=== PATIENT | male | born 1940 | race Caucasian/White ===

== ENCOUNTER 2020-05-27 10:50 | Emergency (ER) | payer OTHER ==
--- OUTSIDE RECORDS SUMMARY | 2020-05-27 10:52 | XMS REPORT | Continuity of Care Document ---
:1940 Author Organization [facility] t Address [address] [place] [address] Dr. [address]. [address] [place] [address] Care Team Providers Name Role Phone DARRELL NESBITT Primary Care Physician Unavailable SYSTEM, NOT IN Attending Clinician Unavailable Eda Prince MA Attending Clinician Unavailable BURR Attending Clinician Unavailable Burr PA Attending Clinician Navid KASPER-BUSINESS DEVELOPMENT, M Attending Clinician Unavailable DARRELL NESBITT Attending Clinician Unavailable Darrell Nesbitt MD Attending Clinician Cathy ELAM Attending Clinician Unavailable Aditya EDITOR IN CHIEF, M Attending Clinician Mirna MERRITT Attending Clinician Unavailable Oly DMD, S Attending Clinician Karli DDS Attending Clinician Justice RN, W Attending Clinician Unavailable Leda Acosta MA Attending Clinician Bret PRITCHETT G Attending Clinician Teir PRITCHETT, L Attending Clinician Payers Payer Name Policy Type Policy Number Effective Date Expiration Date Mirna angelo AETNA MEDICAREAETNA [id number] 2016 MD Beckie malagon MEDICARE 00:00:00 [id number] -PresentMedicare Problems Condition Condition Condition Status Onset Resolution Last Treating Co mments Source Name Details Category Date Date Treatment Clinician Date 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 Social History Social Habit Start Date Stop Date Quantity Comments Source Sex Assigned At M MD Sethi on Exposure to Not sure MD Castellanos SARS-CoV-2 (event) Tobacco use and 2020-05-21 2020-05-21 Former user MD Attila avila exposure 00:00:00 00:00:00 Alcohol intake 2020-05-21 2020-05-21 Current drinker MD Beckie malagon 00:00:00 00:00:00 of alcohol (finding) Smoking Status Start Date Stop Date Source Former smoker 2020-05-21 00:00:00 2020-05-21 00:00:00 MD Attila avila Medications Ordered Filled Start Stop Current Ordering Indication Dosage Frequency Signature Comments Components Source Medication Medication Date Date Medication? Clinician (SIG) Name Name C,E,zinc,co Yes 1{tbl} Take 1 pper 9- tablet by Byron 11/fcwyr4a/ 16:39: mouth n lut 39 daily. (OCUVITE ADULT 50 PLUS ORAL) timolol Yes 1[drp] Administer (TIMOPTIC-X 5-05 1 drop to And erso R) 0.5 % 00:00: both eyes n ophthalmic 00 daily. gel-forming latanoprost Yes 1[drp] Administer (XALATAN) 5-05 1 drop to Attila so 0.005% 00:00: both eyes n ophthalmic 00 at solution bedtime. Vital Signs Vital Name Observation Time Observation Value Comments Source WEIGHT 2020-05-22 13:12:11 123.5 kg WEIGHT 2020-05-22 13:12:11 123.5 kg HEIGHT 2020-05-21 11:15:00 169 cm WEIGHT 2020-05-21 11:15:00 122.2 kg HEIGHT 2020-05-21 11:15:00 169 cm WEIGHT 2020-05-21 11:15:00 122.2 kg Systolic blood pressure 2020-05-22 18:12:11 163 mm[Hg] MD Castellanos Diastolic blood pressure 2020-05-22 18:12:11 75 mm[Hg] MD Castellanos Heart rate 2020-05-22 18:12:11 67 /min MD Attila avila Body temperature 2020-05-22 18:12:11 36.28 Philomena MD Etienne fabian Respiratory rate 2020-05-22 18:12:11 18 /min MD Etienne fabian Body weight 2020-05-22 18:12:11 123.5 kg MD Attila avila BMI 2020-05-22 18:12:11 43.24 kg/m2 MD Attila avila Oxygen saturation in 2020-05-22 18:12:11 98 /min MD Castellanos Arterial blood by Pulse oximetry Body height 2020-05-21 16:15:00 169 cm MD Attila avila Procedures Procedure Date / Time Performed Performing Clinician [facility] e BLOOD UREA NITROGEN 2020-05-22 19:50:00 Loi Elam MD rson COMPLETE BLOOD COUNT W/ 2020-05-22 19:50:00 Loi Elam MD DIFFERENTIAL SERUM CREATININE 2020-05-22 19:50:00 Loi Elam MD ELECTROLYTE PANEL 2020-05-22 19:50:00 Loi Elam MD on GLUCOSE, RANDOM 2020-05-22 19:50:00 Loi Elam MD TYPE AND SCREEN 2020-05-22 19:50:00 Loi Elam MD HEMOGLOBIN A1C 2020-05-22 19:50:00 Loi Elam MD THYROID STIMULATING HORMONE 2020-05-22 19:50:00 Loi Elam MD FREE THYROXINE 2020-05-22 19:50:00 Loi Elam MD Results CBC 2020-05-22 19:50:00 Loi Elam MD MANUAL DIFFERENTIAL 2020-05-22 19:50:00 Loi Elam MD rson SERUM CREATININE 2020-05-22 19:50:00 Loi Elam MD .GLOMERULAR FILTRATION RATE 2020-05-22 19:50:00 Loi Elam MD ABORH 2020-05-22 19:50:00 Loi Elam MD ANTIBODY SCREEN 2020-05-22 19:50:00 Loi Elam MD CLOT EXPIRATION DATE 2020-05-22 19:50:00 Loi Elam MD And erson TMP INTERPRETATION ANTIBODY 2020-05-22 19:50:00 Loi Elam MD SCREEN NEGATIVE TMP INTERPRETATION EXCEPTION 2020-05-22 19:50:00 Loi Elam MD PREOP EXPIRATION CONFIRM ABORH TYPE 2020-05-22 19:49:00 Loi Elam MD US HEAD NECK SOFT TISSUE 2020-05-22 17:38:30 Andrzej Burr MD EKG, 12-LEAD (SCHEDULED) 2020-05-22 00:00:00 Loi Elam MD ORTHOPANTOGRAM 2020-05-21 15:08:55 Clair Calvillo MD HC COVID19 AUTOMATED PCR 2020-05-19 20:26:00 Aidee Rendon MD PATHOLOGY OUTSIDE 2020-04-26 00:00:00 Madelaine Williamson MD INTERPRETATION Plan of Care Planned Activity Planned Date Details Comments Source Future Appointment 2020-06-03 07:00:00 Carie Nesbitt MD, [address] [place] [address] Future Appointment 2020-06-03 07:00:00 Carie Nesbitt MD, [address] [place] [address] Encounters Start End Encounter Admission Attending Care Care Encounter Source Date/Time Date/Time Type Type Clinicians Facility Department ID 2020-05-02 Outpatient SYSTEM, MDA MDA [id number] 15:28:43 PROVIDER Navdeep garcia 2020-05-22 2020-05-22 Outpatient GIANCARLO BURR MDA MDA [id number] 14:54:11 23:59:00 ANDRZEJ garcia 2020-05-22 2020-05-22 Outpatient CARIE FARAH MDA MDA [id number] 13:02:38 16:25:59 Navdeep garcia 2020-05-22 2020-05-22 Outpatient GIANCARLO ELAM MDA MDA [id number] 14:42:21 14:53:00 LOI garcia 2020-05-22 2020-05-22 Outpatient GIANCARLO ELAM MDA MDA [id number] 11:30:00 14:41:00 LOI garcia 2020-05-22 2020-05-22 Outpatient GIANCARLO BURR MDA MDA [id number] 11:18:34 11:18:34 ANDRZEJ garcia 2020-05-21 2020-05-21 Outpatient CARIE FARAH MDA MDA [id number] 11:30:00 23:59:00 Navdeep garcia 2020-05-21 2020-05-21 Outpatient GIANCARLO MERRITT JANNA MDA [id number] 10:08:55 11:29:00 GIUSEPPE garcia 2020-05-21 2020-05-21 Outpatient GIANCARLO MERRITT MDA MDA [id number] 10:00:00 10:07:00 GIUSEPPE garcia 2020-05-21 2020-05-21 Outpatient GIANCARLO SALDIVAR MDA [id number] 09:54:30 09:54:30 Navdeep garcia 2020-05-19 2020-05-19 Outpatient CARIE FARAH MDA MDA [id number] 15:12:45 15:12:45 Navdeep garcia Results Test Description Test Time Test Comments Results Result Comments Source TMP Interpretation Exception PreOp Expiration 2020-05-23 18: 21:23 Test Item Value Reference Range Interpretation Comme nts TMP Patient's pre-op MARION Exception Type and Screen Surekha WOODARD ed by: MARION WOODARD,Dictated Date/Time: (test code shows no evidence 05.23.2020 13:21 PM CDT Transcribed Date/Time: 05.23.2020 = 7543) of RBC 13:21 PM CDTEle ctronically Signed By: MARION WOODARD on alloantibody(ies). 0 13:21 PM CLINICAL INFORMATION PROVIDED BY THE ANESTHESIOLOGISTS AND PATIENT WOULD ALLOW FOR THIS SAMPLE TO BE USED UP TO 30 DAYS FOR TYPE AND SCREEN FOR SURGERY ONLY. MD Saucedo Interpretation Antibody Screen [id number] 18:21:22 Test Item Value Reference Range Interpretation Comments TMP Auto Neg At the present ABSC Interp time, patient (test code = plasma shows no ____MARION 7535) evidence of RBC Surekha WOODARD ed by: alloantibodies. MARION BOSCH,Dictated Date/Time: 13:21 PM CDT Transcribed Gerardo e/Time: 05.23.2020 13:2 1 PM CDTElectronical ly Signed By: MARION CHRISTOPHER on 05.23.2020 13:2 1 PM MD [id number] 02:24:33 Test Item Value Reference Range Interpretation Comments TSH (test code = 7578) 2.42 0.27- 4.20 mcunit/mL MD CastellanosAntibody [id number] 22:33:36 Test Item Value Reference Range Interpretation Comments ABSC. (test code = 890-4) Negative ABSC MD [id number] 22:33:35 Test Item Value Reference Range Interpretation Comments ABORh. (test code = 882-1) B POS MD CastellanosClot Expiration [id number] 22:33:34 Test Item Value Reference Range Interpretation Comments T & S Expiration (test code = 05/25/2020 5318) MD CastellanosConfirm [id number] 22:31:28 Test Item Value Reference Range Interpretation Comments ABORh Confirm. (test code = 882-1) B POS MD CastellanosFree [id number] 21:12:33 Test Item Value Reference Range Interpretation Comments T4 Free (test code = 7502) 1.30 ng/dL 0.93-1.7 MD CastellanosGlomerular Filtration [id number] 21:12:32 Test Item Value Reference Range Interpretation Comments eGFR-AA (test 79 >=60 mL/min/1.73 sq. Normal eGFR: >= 60 code = 8062) m mL/min/1.73 m2N ote: The eGFR is calcula rbisa using the CKD-EPI equ ation. The eGFR declines w ith age. eGFR <60 mL/min /1.73 m2 is considered as " decreased". This equation s hould only be used for pat ients 18 and older. Acco rding to the National Ki dney Foundation's Ki dney Disease Outcome Quality Initiative (KDO QI) classification and 2012 Kidney Disease Improving Global Outcomes (KDIGO) Clinical Practi ce Guideline, the stage of CKD should be c ategorized based on estima brisa GFR. Stage Descripti on GFR mL/min/1.73 m21 Normal or high GFR >=902 Mildly de creased GFR 60-893a Mildly to moder ately decreased GFR 45-593b Moderately to s everely decreased GFR 30-444 Severely decrea sed GFR 15-295 Kidney failure <15 eGFR-MARISSA (test 69 >=60 mL/min/1.73 sq. Nataly l eGFR: >= 60 code = 8063) m mL/min/1.73 m2N ote: The eGFR is calcula brisa using the CKD-EPI equ ation. The eGFR declines w ith age. eGFR <60 mL/min /1.73 m2 is considered as " decreased". This equation s hould only be used for pat ients 18 and older. Acco rding to the National Ki dney Foundation's dney Disease Outcome Quality Initiative (KDO QI) classification and 2012 Kidney Disease Improving Global Outcomes (KDIGO) Clinical Practi ce Guideline, the stage of CKD should be c ategorized based on estima brisa GFR. Stage Descripti on GFR mL/min/1.73 m21 Normal or high GFR >=902 Mildly de creased GFR 60-893a Mildly to moder ately decreased GFR 45-593b Moderately to s everely decreased GFR 30-444 Severely decrea sed GFR 15-295 Kidney failure <15 MD Castellanos.Serum [id number] 21:12:31 Test Item Value Reference Range Interpretation Comments Creatinine (test code = 5399) 1.03 mg/dL 0.67-1.17 MD CastellanosGlucose, [id number] 21:12:30 Test Item Value Reference Range Interpretation Comments Glucose Random (test 86 mg/dL 70-199 Effecti ve 04/15/16, the code = 9360) glucose referen ce intervals have been updated based o n [place] [employer] [place] (Standards of M edical Care in Diabete s 2016. Diabetes Care 2 016; 39: S13-S22).Fastin g blood glucose:Normal: 70 99 mg/dLImpaire d fasting glucose (increa sed risk for diabetes or pre-diabetes): 100 125 mg/dLDiabet es mellitus: >/=1 26 mg/dL Random blood glucose:Normal: 70 199 mg/dLNote: Random glucose >100 mg /dL is associated with increased risk for diabetes MD CastellanosElectrolyte [id number] 21:12:29 Test Item Value Reference Range Interpretation Comments Sodium Lvl (test code = 7355) 143 136- 145 mEq/L Potassium Lvl (test code = 6854) 4.7 3.5- 5.1 mEq/L Chloride (test code = 5279) 105 98- 107 mEq/L CO2 (test code = 5227) 28 22- 29 mEq/L Anion Gap (test code = 9325) 10 4- 14 mEq/L MD [id number] 21:12:28 Test Item Value Reference Range Interpretation Comments BUN (test code = 5055) 12 mg/dL 6-23 MD CastellanosHemoglobin [id number] 20:23:55 Test Item Value Reference Range Interpretation Comments A1C (test code = 5.6 % 4.3-5.6 HbA1c value s >=6.5% are 4632) diagnostic of d iabetes mellitus.Diagno sis should be confirmed by repeat testing.Therape utic Action suggested: >8.0 % HbA1c; Goal oftherapy: <7.0% HbA1c MD Castell[id number] 20:14:58 Test Item Value Reference Range Interpretation Comments Neutrophil % (test code = 70.4 % 42-66 H 86036-9) Lymphocyte % (test code = 15.3 % 24-44 L 737-7) Monocyte % (test code = 10.6 % 2-7 H 744-3) Eosinophil % (test code = 2.7 % 1-4 713-8) Basophil % (test code = 0.7 % 0-1 707-0) IGRE % (test code = 0.3 % 0-0.4 IGRE % c ount 98454-2) includes Metamyelocytes, Myelocytes, and Promyelocytes. Neutrophil Abs (test code 4.91 K/uL 1.7-7.3 = 753-4) Lymphocyte Abs (test code 1.07 K/uL 1-4.8 = 732-8) Monocyte Abs (test code = 0.74 K/uL 0.08-0.7 H 743-5) Eosinophil Abs (test code 0.19 K/uL 0.04-0.4 = 712-0) Basophil Abs (test code = 0.05 K/uL 0-0.1 705-4) IG Abs (test code = 0.02 K/uL 0-0.04 89599-3) Lab Interpretation (test Abnormal code = 58852-2) MD Castellanos.[id number] 20:14:56 Test Item Value Reference Range Interpretation Comments WBC (test code = 7.0 K/uL 4-11 6690-2) RBC (test code = 789-8) 4.96 4.50- 6.00 M/uL Hgb (test code = 718-7) 15.7 14.0- 18.0 gm/dL Hct (test code = 45.3 % 40-54 4544-3) MPV (test code = 787-2) 9.6 fL 4-10.4 MCH (test code = 785-6) 31.7 pg 27-31 H MCHC (test code = 34.7 31.0- 36.0 gm/dL 786-4) RDW-SD (test code = 42.0 fL 35.1-46.3 71167-9) RDW-CV (test code = 12.6 % 12-15.5 788-0) Platelet count (test 149 K/uL 140-440 code = 777-3) INRBC (test code = 0.0 % <=0.0 The INRBC (instrument 5974) NRBC) value ref lects the enumeration of nucleated red b lood cells contained in a 200uL sampleof whole blood analyzed by the instrument. Thi s value maydiffer from the NRBC value reported in a m anual differential,wh ich is based on a 100 cell differential. Lab Interpretation Abnormal (test code = 27157-7) MD CastellanosUS HEAD NECK SOFT [id number] 19:18:32No lateral compartment adenopathy.Interface, Radiology Results In - 05/22/2020 2:20 PM CDTFULL RESUL T:Examination: US HEAD NECK SOFT TISSUE on 05/22/2020 12:38 PMClinical History: Cancer of border of tongueIndication: Other:, Oral tongue cancer initial evaluation of neckComparison: None.Technique: Real-time ultrasound examination of the neck soft tissues was performed.FINDINGS:Suprasternal and Superior Mediastinal: Clear.Right Lateral Neck: Clear.Left Lateral Neck: Clear.Submental to Cricoid: Clear.IMPRESSION:No lateral compartment adenopathy.MD Castellanos [id number] 15:08:55This procedure requires no interpretation from the radiologist.MD CastellanosCOVID-19 (SARS-CoV-2) PCR-Asymptomatic [id number] 06:26:17 Test Item Value Reference Range Interpretation Comments COVID19 (SARS Not Detected Not Detected This test is a CoV-2) Result qualitative (test code = reverse-transcr iptase 65069-6) polymerase yissel n reaction (RT-PC R) developed for t he [employer] syst em and intended for th e detection of SA RS CoV-2 RNA in human nasopharyngeal specimens from patients who meet COVID- 19 clinical and/or epidemiological criteria. This assay has been approv ed by the FDA for use only under Emergency Use Authorization ( EUA) in laboratories th at have been CLIA-certi fied to perform moderate-comple xity and high-complexity tests. The performance characteristics of this assay were veri fied by the [facility], CLIA Accreditat ion #: [id number] and CAP Accreditation # : [id number]. Result s must be interpreted within the context of all relevant clinic al and laboratory find ings and should not form the sole basis for a diagnosis or tr eatment decision. "Pres umptive Positive" resul ts are due to partial amplification o f SARS-CoV-2 targ ets and indicates low a lindsey of virus presen t in the specimen at or near the limit of detect ion. Regardless, ind ividuals with "Presumpti ve Positive" resul ts should be manag ed per institutional guidelines as individuals pos itive for SARS-CoV-2 virus, including use o f appropriate inf ection control protoco ls. Internal contro ls are included to ass ess for possible amplif ication inhibitors. If inhibition is d etected, testing is repe ated and if inhibition i s confirmed the s pecimen is resulted as "Invalid". When an "Invalid" resul t occur, it is recommend ed to wait 3 days bef ore submitting a ne w specimen for te sting if clinically jennie cated. COVID19 SARS EDITOR IN CHIEF Swab Source (test code = 49808) COVID19 SARS New Patient Indication (test code = 16066) MD CastellanosPathology Outside [id number] 16:30:00 Test Item Value Reference Range Interpretation Comments Materials Received (test l1zrbRUyJKJuxMTvPiXn code = 9973) FGZoEQErl3hzMKMlfRNb ZzEwMzNcZnRuYmpcdWMx NZWqDdFjz8wpd298eURx o5tnAPIfMlU4rPHpQWYs eNRkO844YQDuHDheu0of t6KzMIWcjMHrw5A6OSEP tknwfCc3kCgiY32rh5B4 TfvzI8wyHQKkHSHoZ7Co ZH5oMVUgAbg3YAB6CLO3 ZKWhYZWuS8SbKM8nINIw jGUtGUm2e9lcjQesACUv RBE7w8fkCRcbfaXuOJ9v px4xpYt8h6okutHlBLEl IHQbzFUQTQWzO0RkqZyr Cu1gjBt9nMylQpqaOOS2 Hty4GB8dsf92pbj7kZuc XENsxvyqFdR9SFrdJPCj pskvLMi8YNiuSJQukOvx MFxtYXJncjcyMFxtYXJn bMO8PDYysKMjW4FgJBYj IBknYMDzfxp8JgYbVf1v zAXbjKneHSkse5hhe7dj cGJfVpz4EAYoGwUyVswm AUvlp6Pry7kzVMWszb9h HNV7eFMpvGvhg0L4mZNu SWStuDRrctTiSVPhcg28 tMKppZSsmVHtfk9tfcWo sNMdsWBpGQD4rKIucgAo ZCZduKEnKPKjAQ4qnUIt KCIddI9bdvswTCPqUxJw wiavOIGmhMtiblCtSf3h rEysBRS6JDnbY0iaqC2c VaH0XSlvF1tbrJ2rMBb4 DDqrfYH7IEJokG1rCR8p mizqc0puOeYjPO7gofdu i8skJjHzNH9zmjw5b0sl MQW4XCbeXYMgSsH3izI8 NDBcaGVhZGVyeTcyMFxm l593CWI2TdYmNKByz9Jd P2YsxVtaG11jlXekD50k LIVtzTyytJ7nyXfmdS4v ZlCrYyCdUCn6um52LIk8 pxkdlNzcVSi6abVuPQLq TWD3BCOunXSgGHDpR0v4 vnRmIWZwNBC7WSEbhWYq SXQzJ5c8sdXsTLD3EEc1 cnBhZGRmdDNcdHJwYWRk YjBcdHJwYWRkZmIzXHRy pYLmfFZwvIGbtG7suKhp ZUNkfRVxuB1jQXI1MRGh cmgzMjBcdHJoZHJcbHRy cs87SBKvaoBgoEDsyLbc yYLbDBK7LIBmCCFkACTz SAP8SLYvDvGsucFyELfr bGJyZHJiXGJyZHJzXGJy VRM3RVFjCpAjfyLqFElj bGJyZHJsXGJyZHJzXGJy GCZ9VDJqLwNaysCxALdi bGJyZHJyXGJyZHJzXGJy YIC2KODnNlZgiaUnDGms bHBhZHQxMFxjbHBhZGZ0 C1vqfFHcHGKrMBfjwRUh UBRpB3qhcJRaWJddEUQr cGFkZmwzXGNscGFkYjBc W7spUMMjMbEdK4VvxOi8 MDAwXGNsdmVydGFsdFxj rKHaAWO7WKXrPRXkEHUv JOH5QFEuBeRoneWbZWsw bGJyZHJiXGJyZHJzXGJy GZZ9DFLlXzYwcdUqJAop bGJyZHJsXGJyZHJzXGJy SXB5KGYaZkZizeSuCNzm bGJyZHJyXGJyZHJzXGJy JDS1NJPwWwIhszSgKShg bHBhZHQxMFxjbHBhZGZ0 K7utrOOnNDFvKGfmcJOf PMMhP3rawRKqZJivIUUz cGFkZmwzXGNscGFkYjBc K7yqYNIsXuAcW3UzxFz4 NjAwXGNsdmVydGFsdFxj iDDqFQF7XBDjDQYoTUSt WZJ8BXPkKkJloeTzOIoq bGJyZHJiXGJyZHJzXGJy MOO7FBLmOpYjvbZqJSkg bGJyZHJsXGJyZHJzXGJy QIC6LSEiTzOvkaNoEOjz bGJyZHJyXGJyZHJzXGJy VET4NVVeIvPqltLqGDjj bHBhZHQxMFxjbHBhZGZ0 M8lzbJJcSXXcYFpvvQZl ATWzT1eigIBeNQzgMJSa cGFkZmwzXGNscGFkYjBc G6lfOAMzUeKdX5MeyUy3 KtRlBWMkesWlzU50Hlzy r1YuMVKyOFF3VIabCYts bFxwbGFpblxmMVxmczIw QMhkgqiwBYUiHXzfV2zc SkWmYXRsqRkvXPxph7Hi XGYxXGNmMlxmczIwXGIg TCMbODKhiU7mYnqsO6Up yE1zUZcdUnxuL6fsNGXi w7QmvN0aFUirzSEkioxb MVxmczIwXGxhbmcxMDMz FAefE7nyPeSkMWLgvAdd SWltx5EjRWIfRZDiJkag fpXxSFv9xmYwCVXhgZum pNMmIWzipeZucTeph9Iv paCfcBhkRTRbDWj1dfCb qppygOg8xEBzyVpyUFPr xVkbzA8wKaCcHwDnXRbp bGFpblxmMVxmczIwXGxh cqjsMFAjCMmrA4epJgOc UYHxtZiiFEtvk7RhFKJr RIYlUtzcndYhDIVaN67l bGVjdGVkXHBsYWluXGYx XGZzMjBcbGFuZzEwMzNc aGljaFxmMVxkYmNoXGYx BRkoL3jzXzStN5DvVQRy OuDnbGLvI0rsY3YqxYmb YXJkXGludGJsXHNzcGFy IPY0eCLgjsCjxURoqMSa EHSkLPnyYBU6tEYffcys bZTeoszrSKenifZ4OCLh YWluXGYxXGZzMjBcbGFu ZzEwMzNcaGljaFxmMVxk YsKvGCGxJOzyF1rkAyJb G4PrTIKdGqJzHbCRVFOy aXZlZFxwbGFpblxmMVxm czIwXGxhbmcxMDMzXGhp R2twSbCwDWSflUapVPoa m9TsTKYrRTQrShixppVn OMm9dbTnSYTieLklzT20 Kcjgbl68XUZch2hwUZKy R2TqfQJgEREwgNBjNIzt MDhcdHJwYWRkZmwzXHRy cGFkZHIxMDhcdHJwYWRk ZnIzXHRycGFkZHQwXHRy hUTaJQI8T0j7tqJlSNOv WLh1khDtPXVhKlMyrKGe TVF9PWk7IfggyvS8mCHg U7e5KxfeyyXbDBjcpWTc bf62OELcrgXlxMMjmHbh eGXoATL7FEOfCCRrTUQk OXP1EQHwFeMzmhPxGQxr bGJyZHJiXGJyZHJzXGJy CDS0JMMqEhCaeqGbNMyq bGJyZHJsXGJyZHJzXGJy AUD8ZGRiJfHbybSqIZnm bGJyZHJyXGJyZHJzXGJy UGN2JYOmDbMrfhYwGEvd bHBhZHQxMFxjbHBhZGZ0 F2uxiOWpQAFlSIyefGAe TXHbN3ytiGGgVVjrXRVx cGFkZmwzXGNscGFkYjBc A3meFLZcOdBlY4VmnQp5 MDAwXGNsdmVydGFsdFxj qDPgJYS8AHLhWSHlWUIk BCG9CTNvFyZgrrHhVTdh bGJyZHJiXGJyZHJzXGJy BPV6ISNbMsIuewVvQUbl bGJyZHJsXGJyZHJzXGJy PWL2TTVbPtPnomYiIAkq bGJyZHJyXGJyZHJzXGJy WIP3ZSOsZdGnzgEqRVmp bHBhZHQxMFxjbHBhZGZ0 M6wyyXQqSDZxOWgjvYGh ARCvC7kcgLSbHLwdUOTy cGFkZmwzXGNscGFkYjBc L0sdRIVnCpXjR6MhhIn6 NjAwXGNsdmVydGFsdFxj rTZrFWM4EAImCZHjCQLc JXW6ZOQbRvAkxeJjKVco bGJyZHJiXGJyZHJzXGJy BZW0EQHtSyFzonNaNNgw bGJyZHJsXGJyZHJzXGJy NVS5XTByKpFlpdBjHWev bGJyZHJyXGJyZHJzXGJy QXT0QSDvWbJrreDaNFix bHBhZHQxMFxjbHBhZGZ0 Y0jemXKsTHPmFZsujYKr EOMvP9ffqPEkPOdoGGAq cGFkZmwzXGNscGFkYjBc V3rqVZFvEpUuT7ZnbPb3 MbKrMFUndjVwhS14Wjjq m0KvSQGqCMM4WCobIMeq bFxwbGFpblxmMFxmczI0 XHBsYWluXGYxXGZzMjBc bGFuZzEwMzNcaGljaFxm SOlfGpPwOIEkOPdsJ0hh LhKpA2JpQQIuLrRaYB6m P3MoPbByDMOaTcDpRSCs U2PkGZGyNomNV3vwDMZk VVNTXHBsYWluXGYxXGZz MjBcbGFuZzEwMzNcaGlj aFxmMVxkYmNoXGYxXGxv D7qwJaMhO0JlLDDdGrBn xORxQ4uoG0TdpFnxQYHc XGludGJsXHNzcGFyYWF1 cOQpfdDzrSmjyFarqN2c ZjBcZnMyNFxwbGFpblxm MVxmczIwXGxhbmcxMDMz JKixG3zrXvLoAWAyjHpa SSxav7TlUWXqRQGqDlsd bgBkSDhjYz7iGERtKJHz YWluXGYxXGZzMjBcbGFu ZzEwMzNcaGljaFxmMVxk UoAzSGUwMMdrR5yoYhXv Z3InCQHfYkLatLPiX9ig V3ZggKlzQIPgOZcaiLTe VSXiwHHfCDQ1cXDohzTi xKzywPxbcQ4sMhZbUhIq NFxwbGFpblxmMVxmczIw ILxtecrbSNVoNPamR3al TqRnMSUkpWxwBHeed9Oy XGYxXGNmMlxmczIwIDgv MjAvMjAyMFxwbGFpblxm MVxmczIwXGxhbmcxMDMz MVkyO7eyDsGaRLEmhXpb BRbkn8SpXCBoBBPtNcda bnWaYYu9pjAhFKVwqDdq nB66Gldsnc27KEJckrZk x9VcWCGfTCO7MSnoAKro bFxwbGFpblxmMFxmczI0 XHBsYWluXGYxXGZzMjBc bGFuZzEwMzNcaGljaFxm AEneLoXyIVHaAEhxW7lv ZjFcZnMyMFxwYXJ9 Diagnosis (test code = r5vixQEaQFDcvYX7RSIn 34) JVSqg6pkh0GqhSNuxPPy YEzsxYJjceNlnt64jIV6 kX44XW3oDBLiJmK5GIPk wwR4Uik1KCFtIRGthKUq P668s7dog4nxixNmvLT4 fVxwYXJkXHBsYWluXGZz GlUhNEhyWMPvk6A7q5jj ZSBzdGFpbmVkIHNsaWRl xrAdY6RhOtSjDHSpHeQg DfUGh75kqWSrblnhaQNi tDA6ZGQmsLHxaP5bc0ap KEEpXHBhclxwYXJcbGk3 MjBcbGluNzIwIFNRVUFN Q3QKSRNBHeNXAn7NNDVD Kr4QRJIPUFcDPRmuQBhQ G2FVMB4TKDDWB45hW4HW LY7CSROHK72QHNIVSUqW NcEZYA0UMnncFDEitNez NUsjpaGipQHnTYfOW0ke YXJ9 Disclaimer (test code = h4pjzSZcLLEcxTXdKqHb 9844) YAThJULcb4yoBIGgeQPp ZzEwMzNcZnRuYmpcdWMx LJFuIcIid0kuk668tENx k6tnPZCkSvQ3qQFmQJNl yOYlZ134XKYyHVpeq9yq f6GaKQWyvVYrp3A1EPPJ uxfviDe5fMemZ67vv9B9 KextW4htAYHoHBIcR6Ln ZZ8eYGXsNde9HWC5RFX1 EUBaUZKlG5AcTL4oMMXw hWJxPDd1c6ajlOdhEWEn ALE6t3jpJAxvwlAwYJ5b mg4wyEs1a5luiiKeKSUq ALVwxVEMDUUiL0VlvSsu Eg9mvIx8cAlxGmyrEHW6 Dkn4KE8hmm70qiz2wGgl YOCgjjswTmI9MJhtTNJs pghdCOy4CUsaIBObeSV0 BWPvlHKkN8ZwWIQmYQ2c vbb8JSP2YBvsONNlYyG4 NDBcaGVhZGVyeTcyMFxm g355NOD8LrYqNX8dC2Lw f4H4bG3szAWgDJTavVJz VzOfNEMgdh0idACwMCns j7VcXWX0awQ4wEYezSQn VAYzDA12Qirri8JnBdnu DEP5YIBylnUrz6Juu4mb WtAldwZuG4qqH3JyOBNw UTUgXYXqLeBpdwAen4Uf t1BnqGFxgAa7t3htLARv VOHktRbkx4lvVXU5TCVw U9L7zZMtk1zvGRhjGKSd fEP8qqC8ITFpoUOpI5Kv kP1fIYOpIU7qvbk5u4ff IQQ2IXvqXFByIeO3owR5 NDBcaGVhZGVyeTcyMFxm j050JEW3MhOmQNAcy5Gc A4BwwOaoJ87seUeoH92w ZXUslPqmdD1dlLzctO8t ZjBcZnMyNFxxbFxwbGFp lmvaWAffefA0EJrhcsed EYOgUHuyS5euJoFfDALs iYqtETitr7SfKZFaWXHx DnhoidZ2TAFCv96uEPVl r4AlNHZhnW4qsMJqETsb cbZnyPE0VEgrpyBeIvUd soJzWPUfiQ5sATHzQH9h NHYxqvXlcx0ffdWyEFHo UFHtM2KvzyjugTguyxNx EAPqxe5qnjMqLVO4WYTY FG2LCBOrKKXmj02wAQEa vNlxyQ1yyNQfmxErFDRt x8FxwL3lbZLXZDUaZ0zh KF3aANgpv2IfuWCkwEPi qSL4USVwi2WgBsOyocQy lPLkuIYkH7OywLqmU6eu OOIuPSPavhQgxZGcx0Yj NDLoxRI8pXFfOP3NVtNQ j70aAKJcFKCJfdKyPYYk aZvldGE5hcS2dH3uYgVV ZiBhcHBsaWNhYmxlLCBj b209sv2eqvF1JNXzIXUj iqqbl5UbKPKxIEFbxJ78 SJUqUUWndq7whtfqnABh qlFmD1Awbyw7xJ8vZKMr YWluXGYxXGZzMjJcbGFu ZzEwMzNcaGljaFxmMVxk FmUvKHQaWEgqM3maWeTl ZnMyMlxwYXJ9 MD Castellanos
--- NOTE | 2020-05-27 13:29 | EDPHYS ---
Physician Documentation [facility] Name: Alfredo Kulkarni Age: 79 yrs Sex: Male : 1940 Arrival Date: 05/27/2020 Time: 10:50 Bed 18 Private MD: ED Physician Edda Moore HPI: 05/27 12:57 This 79 yrs old Male presents to ER via Ambulatory with complaints of Loss of snw Taste \T\ Smell, Fever, Body Aches. 12:57 Onset: The symptoms/episode began/occurred suddenly, 1 week(s) ago, and became snw persistent. Associated signs and symptoms: Pertinent positives: cough, diarrhea, fever, wheezing, loss of taste and smell. Modifying factors: The patient symptoms are alleviated by cough drops have helped a little, the patient symptoms are aggravated by nothing. The patient has not experienced similar symptoms in the past. The patient has been recently seen by a physician: the patient's primary care provider, Dr. Lake 7 day(s) ago, with similar presenting complaints, and apparently given a diagnosis of Bronchitis, was given a prescription for antibiotics. Pt is supposed to have some of his tongue removed in one week at [facility]. CoVid 19 swab will be done at this visit today. 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 - Social history:: Smoking status: Patient/guardian denies using tobacco, the patient reports quitting approximately 40 years ago, Patient uses alcohol, occasionally. only on a social basis. Patient/guardian denies using street drugs, IV drugs. ROS: 12:56 Eyes: Negative for injury, pain, redness, and discharge, ENT: Negative for injury, snw pain, and discharge, Neck: Negative for injury, pain, and swelling. 12:56 Cardiovascular: Negative for chest pain, palpitations, and edema, Respiratory: Negative for shortness of breath, cough, wheezing, and pleuritic chest pain, Back: Negative for injury and pain, : Negative for injury, bleeding, discharge, and swelling. 12:56 MS/Extremity: Negative for injury and deformity, Skin: Negative for injury, rash, and discoloration, Neuro: Negative for headache, weakness, numbness, tingling, and seizure. 12:56 Constitutional: Positive for body aches, fatigue, malaise, poor PO intake, loss of taste and smell. 12:56 Constitutional: Positive for fever. 12:56 Abdomen/GI: Positive for diarrhea. Exam: 12:55 Head/Face: Normocephalic, atraumatic. Eyes: Pupils equal round and reactive to light, snw extra-ocular motions intact. Lids and lashes normal. Conjunctiva and sclera are non-icteric and not injected. Cornea within normal limits. Periorbital areas with no swelling, redness, or edema. ENT: Nares patent. No nasal discharge, no septal abnormalities noted. Tympanic membranes are normal and external auditory canals are clear. Oropharynx with no redness, swelling, or masses, exudates, or evidence of obstruction, uvula midline. Mucous membranes moist. Neck: Trachea midline, no thyromegaly or masses palpated, and no cervical lymphadenopathy. Supple, full range of motion without nuchal rigidity, or vertebral point tenderness. No Meningismus. Chest/axilla: Normal chest wall appearance and motion. Nontender with no deformity. No lesions are appreciated. Cardiovascular: Regular rate and rhythm with a normal S1 and S2. No gallops, murmurs, or rubs. Normal PMI, no JVD. No pulse deficits. 12:55 Abdomen/GI: Soft, non-tender, with normal bowel sounds. No distension or tympany. No guarding or rebound. No evidence of tenderness throughout. Back: No spinal tenderness. No costovertebral tenderness. Full range of motion. Skin: Warm, dry with normal turgor. Normal color with no rashes, no lesions, and no evidence of cellulitis. MS/ Extremity: Pulses equal, no cyanosis. Neurovascular intact. Full, normal range of motion. Neuro: Awake and alert, GCS 15, oriented to person, place, time, and situation. Cranial nerves II-XII grossly intact. Motor strength 5/5 in all extremities. Sensory grossly intact. Cerebellar exam normal. Normal gait. Psych: Awake, alert, with orientation to person, place and time. Behavior, mood, and affect are within normal limits. 12:55 Constitutional: The patient appears alert, awake, obese, uncomfortable. 12:55 Respiratory: the patient does not display signs of respiratory distress, Respirations: normal, Breath sounds: + upper airway congestion. Vital Signs: 10:58 BP 159 / 62; Pulse 65; Resp 18; Temp 99.0; Pulse Ox 97% on R/A; Weight 127.01 kg; ll1 Height 5 ft. 6 in. (167.64 cm); Pain 4/10; 10:58 Body Mass Index 45.19 (127.01 kg, 167.64 cm) ll1 MDM: 12:25 Patient medically screened. snw 13:31 Data reviewed: vital signs, nurses notes. Data interpreted: Pulse oximetry: on room air snw is 97 %. Interpretation: normal. Counseling: I had a detailed discussion with the patient and/or guardian regarding: the historical points, exam findings, and any diagnostic results supporting the discharge/admit diagnosis, the presence of at least one elevated blood pressure reading (>120/80) during this emergency department visit, lab results, radiology results, the need for outpatient follow up, for definitive care. Special discussion: Based on the history and exam findings, there is no indication for further emergent testing or inpatient evaluation. I discussed with the patient/guardian the need to see the primary care provider for further evaluation of the symptoms. 05/27 10:52 Order name: COVID-19; Complete Time: 13:10 snw 05/27 12:38 Order name: Chest Single View XRAY snw Administered Medications: No medications were administered Disposition: 17:18 Co-signature as Attending Physician, Edda Moore MD. ma2 Disposition: 05/27/20 13:28 Discharged to Home. Impression: Viral infection, unspecified. - Condition is Stable. - Discharge Instructions: Fever, Adult, Viral Respiratory Infection. - Prescriptions for Zinc (with A and C) Lozenges - take 1 lozenge by ORAL route once daily; 30 lozenge. melatonin - take 5 milligram by ORAL route Every night; 30 milligram. orphenadrine citrate 100 mg Oral Tablet Sustained Release - take 1 tablet by ORAL route 2 times per day As needed; 20 tablet. Albuterol Sulfate 90 mcg/actuation - inhale 1-2 puff by INHALATION route every 4-6 hours; 1 Inhaler. Zithromax 500 mg Oral Tablet - take 1 tablet by ORAL route once daily for 3 days; 3 tablet. - Medication Reconciliation Form, Thank You Letter, Antibiotic Education, Prescription Opioid Use form. - Follow up: Emergency Department; When: As needed; Reason: Worsening of condition. Follow up: Private Physician; When: 1 - 2 days; Reason: Recheck today's complaints, Continuance of care, Re-evaluation by your physician. Addendum: 05/29/2020 18:41 Addendum: Notified patient of positive COVID-19 test result \T\ 1841. Feeling well. . rn Signatures: Dispatcher [employer] EDMS Eduarda Hastings, FIRER RETORT-C FIRER RETORT-Csnw Sonja Thorne RN RN iw Pilo Zepeda MD MD rn Alzahri, Mohammad, MD MD ma2 Jayson Mendenhall RN RN ll1 Corrections: (The following items were deleted from the chart) 05/27 14:14 13:28 05/27/2020 13:28 Discharged to Home. Impression: Viral infection, unspecified. iw Condition is Stable. Forms are Medication Reconciliation Form, Thank You Letter, Antibiotic Education, Prescription Opioid Use. Follow up: Emergency Department; When: As needed; Reason: Worsening of condition. Follow up: Private Physician; When: 1 - 2 days; Reason: Recheck today's complaints, Continuance of care, Re-evaluation by your physician. snw
--- NOTE | 2020-05-27 13:29 | ER ---
Nurse's Notes [facility] Name: Alfredo Kulkarni Age: 79 yrs Sex: Male : 1940 Arrival Date: 05/27/2020 Time: 10:50 Bed 18 Private MD: Diagnosis: Viral infection, unspecified Presentation: 05/27 10:58 Chief complaint: Patient states: Fever, body aches, cough, loss of taste and smell for ll1 5 days. Covid negative last week, but then got sick. Coronavirus screen: Client denies travel out of the [place] in the last 14 days. cough unrelated to allergies, fatigue, fever, shortness of breath, loss of taste or smell, Client presents with at least one sign or symptom that may indicate coronavirus-19. Standard/surgical mask placed on the client. Ebola Screen: Patient denies travel to an Ebola-affected area in the 21 days before illness onset. Initial Sepsis Screen: Does the patient meet any 2 criteria? No. Patient's initial sepsis screen is negative. Risk Assessment: Do you want to hurt yourself or someone else? Patient reports no desire to harm self or others. Onset of symptoms was May 22, 2020. 10:58 Method Of Arrival: Ambulatory ll1 10:58 Acuity: REILLY 3 ll1 Historical: - Allergies: 11:00 No Known Drug Allergies; ll1 - PSHx: 11:00 bladder tumor removal; prostate sx; ll1 - Immunization history:: Flu vaccine is up to date. - Social history:: Smoking status: Patient/guardian denies using tobacco, the patient reports quitting approximately 40 years ago, Patient uses alcohol, occasionally. only on a social basis. Patient/guardian denies using street drugs, IV drugs. Screenin:01 Abuse screen: Denies threats or abuse. Denies injuries from another. Nutritional ls4 screening: No deficits noted. Tuberculosis screening: No symptoms or risk factors identified. Fall Risk None identified. Ambulatory Aid- None/Bed Rest/Nurse Assist (0 pts). Gait- Normal/Bed Rest/Wheelchair (0 pts) Mental Status- Oriented to own ability (0 pts). Vital Signs: 10:58 BP 159 / 62; Pulse 65; Resp 18; Temp 99.0; Pulse Ox 97% on R/A; Weight 127.01 kg; ll1 Height 5 ft. 6 in. (167.64 cm); Pain 4/10; 10:58 Body Mass Index 45.19 (127.01 kg, 167.64 cm) ll1 ED Course: 10:50 Patient arrived in ED. ds1 10:51 [facility] snw 10:51 Edda Moore MD is Attending Physician. snw 11:00 Triage completed. ll1 11:01 Arm band placed on. ll1 12:01 Nicole Richard, RN is Primary Nurse. ls4 12:01 Patient has correct armband on for positive identification. Bed in low position. Call ls4 light in reach. Side rails up X 1. Pulse ox on. NIBP on. Verbal reassurance given. 12:01 No provider procedures requiring assistance completed. Patient maintains SpO2 ls4 saturation greater than 95% on room air. 14:00 Chest Single View XRAY In Process Unspecified. EDMS Administered Medications: No medications were administered Outcome: 13:28 Discharge ordered by . snw 14:14 Patient left the ED. iw Signatures: Dispatcher [employer] EDMS Eduarda Hastings FNP-C [employer]uan Ha ds1 Sonja Thorne RN RN iw Nicole Richard, RN RN ls4 Jayson Mendenhall, RADAMES RN ll1
[2020-05-27] MEDS ORDERED: dexAMETHasone 10 MG/ML VIAL ONE (14:14)
[2020-05-27] MEDS ORDERED: AZITHROMYCIN 250 MG TAB ONE (14:14)
--- NOTE | 2020-05-27 14:25 | RAD REPORT ---
EXAM DESCRIPTION: Kandace Single View05/27/2020 2:01 pm CLINICAL HISTORY: Cough COMPARISON: 2017 FINDINGS: Left base is hazy. Right lung appears clear. The heart is normal size IMPRESSION: Left base is hazy could be secondary to a mild infiltrate or overlying soft tissue. PA a nd lateral chest series recommended
[2020-05-28 02:10] VITALS: BP 159/62; TEMP 99; O2SAT 97
== END 2020-05-27 14:14 | disposition home or self-care (01) ==
LOC: ER 10:50
DX: U07.1 COVID-19 (principal); B34.9 Viral infection, unspecified
CPT/HCPCS: 71045; 99284; U0002; J1100

== ENCOUNTER 2020-06-03 08:45 | Inpatient (IN) | payer OTHER ==
--- OUTSIDE RECORDS SUMMARY | 2020-06-03 09:03 | XMS REPORT | Continuity of Care Document ---
:1940 Author Organization [facility] t Address [facility] [address] [place] [address] Care Team Providers Name Role Phone DARRELL NESBITT Primary Care Physician Unavailable SYSTEM, NOT IN Attending Clinician Unavailable Leno HEMPHILL Attending Clinician Lee STARK Attending Clinician Eda Prince MA Attending Clinician Unavailable LENO Attending Clinician Unavailable Navid KASPER-COMMISSION ASSOCIATE, M Attending Clinician Unavailable DARRELL NESBITT Attending Clinician Unavailable Darrell Nesbitt MD Attending Clinician Cathy ELAM Attending Clinician Unavailable Aditya VIDEO TAPE DUPLICATOR, M Attending Clinician Mirna MERRITT Attending Clinician Unavailable Oly DMD, S Attending Clinician Karli DDS Attending Clinician Justice RN, W Attending Clinician Unavailable Dave BRIGHT Y Attending Clinician Bret PRITCHETT G Attending Clinician Teri PRITCHETT, L Attending Clinician Payers Payer Name [...] Name C,E,zinc,co Yes 1{tbl} Take 1 pper 05-21 tablet by Byron 11/jpgpp3q/ 16:39: mouth n lut 39 daily. (OCUVITE ADULT 50 PLUS ORAL) timolol Yes 1[drp] Administer MD (TIMOPTIC-X 5-05 1 drop to And erso R) 0.5 % 00:00: both eyes n ophthalmic 00 daily. gel-forming latanoprost Yes 1[drp] Administer MD (XALATAN) 5-05 1 drop to Attila so [...] Procedure Date / Time Performed Performing Clinician Sour e BLOOD UREA NITROGEN 2020-05-22 19:50:00 Loi Elam MD rson COMPLETE BLOOD COUNT W/ 2020-05-22 19:50:00 Loi Elam MD DIFFERENTIAL SERUM CREATININE 2020-05-22 19:50:00 Loi Elam MD ELECTROLYTE PANEL 2020-05-22 19:50:00 Loi Elam MD Navdeep on GLUCOSE, RANDOM 2020-05-22 19:50:00 Loi Elam [...] ABORH TYPE 2020-05-22 19:49:00 Loi Elam MD Attila son US HEAD NECK SOFT TISSUE 2020-05-22 17:38:30 Andrzej Burr MD EKG, 12-LEAD (SCHEDULED) 2020-05-22 00:00:00 Loi Elam MD ORTHOPANTOGRAM 2020-05-21 15:08:55 Clair Calvillo MD HC COVID19 AUTOMATED PCR 2020-05-19 20:26:00 Aidee Rendon MD PATHOLOGY OUTSIDE 2020-04-26 00:00:00 Madelaine Williamson MD INTERPRETATION Plan of Care Planned Activity Planned Date Details Comments Source Future Appointment 2020-07-18 07:05:00 Carie Nesbitt MD, [address] [place] [address] Future Appointment 2020-07-18 07:05:00 Carie Nesbitt MD, [address] [place] [address] Encounters Start End Encounter Admission Attending Care Care Encounter Source Date/Time Date/Time Type Type Clinicians Facility Department ID 2020-05-02 Outpatient SYSTEM, JANNA MDA [id number] 15:28:43 PROVIDER Navdeep garcia 2020-05-22 2020-05-22 Outpatient GIANCARLO BURRJANNA MDA [id number] 14:54:11 23:59:00 ANDRZEJ garcia 2020-05-22 2020-05-22 Outpatient CARIE FARAH JANNA MDA [id number] 13:02:38 16:25:59 Navdeep garcia 2020-05-22 2020-05-22 Outpatient GIANCARLO ELAMJANNA MDA [id number] 14:42:21 14:53:00 LOI garcia 2020-05-22 2020-05-22 Outpatient GIANCARLO ELAMJANNA MDA [id number] 11:30:00 14:41:00 LOI garcia 2020-05-22 2020-05-22 Outpatient GIANCARLO BURRJANNA MDA [id number] 11:18:34 11:18:34 ANDRZEJ garcia 2020-05-21 2020-05-21 Outpatient GIANCARLO CHUNGCARIE JANNA MDA [id number] 11:30:00 23:59:00 Nadveep garcia 2020-05-21 2020-05-21 Outpatient GIANCARLO OLY MDA MDA [id number] 10:08:55 11:29:00 GIUSEPPE garcia 2020-05-21 2020-05-21 Outpatient GIANCARLO MERRITT MDA MDA [id number] 10:00:00 10:07:00 GIUSEPPE garcia 2020-05-21 2020-05-21 Outpatient GIANCARLO SALDIVAR MDA [id number] 09:54:30 09:54:30 Navdeep garcia 2020-05-19 2020-05-19 Outpatient CARIE FARAH MDA MDA [id number] 15:12:45 15:12:45 Navdeep garcia Results Test Description [...] TYPE AND SCREEN FOR SURGERY ONLY. MD CastellanosTM Interpretation Antibody Screen [id number] 18:21:22 Test Item Value Reference Range Interpretation Comments TMP Auto Neg At the present ABSC Interp time, patient (test code = plasma shows no ____MARION 7535) evidence of RBC Surekha WOODARD ed by: alloantibodies. MARION BOSCH,Dictated Date/Time: 13:21 PM CDT Transcribed Gerardo e/Time: 05.23.2020 13:2 1 PM CDTElectronical ly Signed By: MARION CHRISTOPHER on 05.23.2020 13:2 1 PM MD [id number] 02:24:33 Test Item Value Reference Range Interpretation Comments TSH (test code = 7578) 2.42 0.27- 4.20 mcunit/mL MD CastellanosAntibody [id number] 22:33:36 Test Item Value Reference Range Interpretation Comments ABSC. (test code = 890-4) Negative ABSC MD [id number] 22:33:35 Test Item Value Reference Range Interpretation Comments ABORh. (test code = 882-1) B POS MD CastellanosClot Expiration [id number] 22:33:34 Test Item Value Reference Range Interpretation Comments T & S Expiration (test code = 05/25/2020 5318) MD CastellanosConfirm [id number] 22:31:28 Test Item Value Reference Range Interpretation Comments ABORh Confirm. (test code = 882-1) B POS MD CastellanosFree [id number] 21:12:33 Test Item Value Reference Range Interpretation Comments T4 Free (test code = 7502) 1.30 ng/dL 0.93-1.7 MD CastellanosGlomerular Filtration [id number] 21:12:32 Test Item Value Reference Range Interpretation [...] <15 eGFR-MARISSA (test 69 >=60 mL/min/1.73 sq. Natlay l eGFR: >= 60 code = 8063) m mL/min/1.73 m2N ote: The eGFR is calcula brisa using the CKD-EPI equ ation. The eGFR declines w ith age. eGFR <60 mL/min /1.73 m2 is considered as " decreased". This equation s hould only be used for pat ients 18 and older. Acco rding to the National dney Foundation's dney Disease Outcome Quality Initiative [...] GFR 15-295 Kidney failure <15 MD Castellanos.Serum [id number] 21:12:31 Test Item Value Reference Range Interpretation Comments Creatinine (test code = 5399) 1.03 mg/dL 0.67-1.17 MD CastellanosGlucose, [id number] 21:12:30 Test Item Value Reference Range Interpretation Comments Glucose Random (test 86 mg/dL 70-199 Effecti ve 04/15/16, the code = 9360) glucose referen ce intervals have been updated based o n [place] Diabet es Association [place] (Standards of [...] with increased risk for diabetes MD CastellanosElectrolyte [id number] 21:12:29 Test Item Value Reference Range Interpretation Comments Sodium Lvl (test code = 7355) 143 136- 145 mEq/L Potassium Lvl (test code = 6854) 4.7 3.5- 5.1 mEq/L Chloride (test code = 5279) 105 98- 107 mEq/L CO2 (test code = 5227) 28 22- 29 mEq/L Anion Gap (test code = 9325) 10 4- 14 mEq/L MD [id number] 21:12:28 Test Item Value Reference Range Interpretation Comments BUN (test code = 5055) 12 mg/dL 6-23 MD CastellanosHemoglobin [id number] 20:23:55 Test Item Value Reference Range Interpretation Comments A1C (test code = 5.6 % 4.3-5.6 HbA1c value s >=6.5% are 4632) diagnostic of d iabetes mellitus.Diagno sis should be confirmed by repeat testing.Therape utic Action suggested: >8.0 % HbA1c; Goal oftherapy: <7.0% HbA1c MD CastellanosGkqnjlovIqnwnvjlprqg4822-88-88 20:14:58 Test Item Value Reference Range Interpretation Comments Neutrophil % (test code = 70.4 % 42-66 H 87545-0) Lymphocyte % (test code = 15.3 % 24-44 L 737-7) Monocyte % (test code = 10.6 % 2-7 H 744-3) Eosinophil % (test code = 2.7 % 1-4 713-8) Basophil % (test code = 0.7 % 0-1 707-0) IGRE % (test code = 0.3 % 0-0.4 IGRE % c ount 31624-2) includes Metamyelocytes, Myelocytes, and Promyelocytes. Neutrophil Abs (test code 4.91 K/uL 1.7-7.3 = 753-4) Lymphocyte Abs (test code 1.07 K/uL 1-4.8 = 732-8) Monocyte Abs (test code = 0.74 K/uL 0.08-0.7 H 743-5) Eosinophil Abs (test code 0.19 K/uL 0.04-0.4 = 712-0) Basophil Abs (test code = 0.05 K/uL 0-0.1 705-4) IG Abs (test code = 0.02 K/uL 0-0.04 35117-1) Lab Interpretation (test Abnormal code = 79138-4) MD Castellanos.[id number] 20:14:56 Test Item Value Reference Range Interpretation [...] RDW-SD (test code = 42.0 fL 35.1-46.3 72634-3) RDW-CV (test code = 12.6 % 12-15.5 [...] differential. Lab Interpretation Abnormal (test code = 47817-7) MD CastellanosUS HEAD NECK SOFT [id number] 19:18:32No lateral compartment adenopathy.Interface, Radiology Results In [...] to Cricoid: Clear.IMPRESSION:No lateral compartment adenopathy.MD Castellanos [id number] 15:08:55This procedure requires no interpretation from the radiologist.MD CastellanosCOVID-19 (SARS-CoV-2) PCR-Asymptomatic [id number] 06:26:17 Test Item Value Reference Range Interpretation Comments COVID19 (SARS Not Detected Not Detected This test is a CoV-2) Result qualitative (test code = reverse-transcr iptase 30701-4) polymerase yissel n reaction (RT-PC R) developed for t he [employer] ONEL combionic0 syst em and intended for th e [...] fied by the [facility]biolog [facility] at [facility], CLIA Accreditat ion #: [id number] and CAP Accreditation # : [id number]. Result s must be interpreted within the [...] sting if clinically jennie cated. COVID19 SARS VIDEO TAPE DUPLICATOR Swab Source (test code = 84639) COVID19 SARS New Patient Indication (test code = 00598) MD CastellanosPathology Outside [id number] 16:30:00 Test Item Value Reference Range Interpretation Comments Materials Received (test p5abzPCbHNOnpVAqErBc code = 9973) CAMbQPTix7drLKNuoEDn ZzEwMzNcZnRuYmpcdWMx JVAdBoGtg7cci169pKNg q4dpMHJuSbG3xNKsXFUf aMQlL886YBMoFTxbn3fr b9DhVWCeoBDst6T1RXQJ prssqWa0iAauV43bp5V0 LoplI8piHYUvBUMyK4Ez QK5eYVElQjh5SFA2OCY3 FQHjQEErN7HvNL6vWNNh uKUeGQs6p4nttZhiMWNt ILF4i7daKYxnngQxBD9u qt6fdPb7r8qnaxLwZGQc FJTnoWOYKJEmA4EykQja Rm2mdUp0dSfmVveeLFT5 Qfv0QM2rjn16jji0kJom IRGfebvyTwD2GDeeSEIr uqswSOw4ZGkpUGFcgBxe MFxtYXJncjcyMFxtYXJn xCV8AUWbdFAhX1BfSESg OFerTOBgbec5BdIrEt4d oGYdkOslBAjfk2hmv5vz jJOpQcw2KVAcBdVkHjlq QGjwl8Lzz5xnPPBicj5s IDY5nTCepKkxe1D2pNGi NTLqrRAfviUrFFLesp04 dZCvsNMzcTHmyh7wgqWv cNCqfZHdNNJ9mDFkirXa DPWbrMAcBHGxZA1nyWTi SQZmlU4puenkVWYyTxEx tlmjOZZgtVhwgbTuRm6u cKkjEKX4JVxxH9nnqW7i IiR4LKlmH0tdlU9hRHe6 HQmciZP9ODTnqK1dXL2b uxicl3usBzTzET2phrlm f5jxBxAdRY8uhdj4y5vv KNH9HUvuLZCcVyQ4ddK5 NDBcaGVhZGVyeTcyMFxm l748PCY8JpStRGHzf5Ec N6SqqAygH75vpGxpB18d YYCgzBgldZ8vpRkexN7s DyGpQqYuLLq9ob09FDp9 dshnjNqlCYx2dbBrRGAp RTL5APLjwQMqNNAgD6c6 buRqIMLcXLE1MMYmmVEq BAAsD5j3kpUoDIO5FDx3 cnBhZGRmdDNcdHJwYWRk YjBcdHJwYWRkZmIzXHRy lMHmqQVsxHSdiP3crKju OLFmvQGjaF2oHLF7BPFy cmgzMjBcdHJoZHJcbHRy pc98EJGcddElfGNaqGzj dVTbFQX2THNgYOUqCFDb OEI2CLZzHbWpjzXoSJki bGJyZHJiXGJyZHJzXGJy DYX1KBNvOrNjxpYnLGsy bGJyZHJsXGJyZHJzXGJy WOJ8HIWzDqRdpwSqKIyi bGJyZHJyXGJyZHJzXGJy SJX5XQYpDjGisxLjLCkf bHBhZHQxMFxjbHBhZGZ0 T9xnsZMaVBGtZWrbhTOh QFLtA8sigPJfSTweJYUf cGFkZmwzXGNscGFkYjBc X5svNVXyKbXrB8RqgTd2 MDAwXGNsdmVydGFsdFxj rIIpXGX4BDLlDTTqHXRz JYR0USVpOeNwudPbYZgz bGJyZHJiXGJyZHJzXGJy RBV1URCrKdArzvMwYMlt bGJyZHJsXGJyZHJzXGJy DVE1ROYoLxWdnjZnCAcr bGJyZHJyXGJyZHJzXGJy QMV7MWHlWuQxbcQlFMpz bHBhZHQxMFxjbHBhZGZ0 T2xipDJpRMJqNDefmHBw DQQvJ5lmzHBdHXagGWUa cGFkZmwzXGNscGFkYjBc W4unOAZfBzNnY9EqmPu1 NjAwXGNsdmVydGFsdFxj bZQoRPC7XTUpHNQqFIPz FRL0MEHyQpHcawOpFYmu bGJyZHJiXGJyZHJzXGJy RUL0GXHfYsCuzfHoLGte bGJyZHJsXGJyZHJzXGJy WLU6CUJjBxFaogZrZYua bGJyZHJyXGJyZHJzXGJy KKY9YISuBvYghvDdHTys bHBhZHQxMFxjbHBhZGZ0 H8wxfAKuYHFaLTqdoGXn AJKnJ5sheACfRBjjTCLu cGFkZmwzXGNscGFkYjBc N7odVNJmPvRrR7UyuNv4 LfOzNVZwjiVerN44Qjls w6ZzZVAjBPN4IWegYSow bFxwbGFpblxmMVxmczIw AOincwmoOFQvXLuaJ9nz UvVfALZseJwaMNjkm7Ex XGYxXGNmMlxmczIwXGIg FWVgHERcjI0zBhalE0Yj kQ9iMBbtDmtaW7vyOANj j2PhrA4pYUypeNXbdazu MVxmczIwXGxhbmcxMDMz PGhuH0naXkMtSXDxmYux RMwzd0HgVWCzARAgKewd ikXzILq6fiPvSRIizQpi bXGsTDuvyhBspOsjw8Oo onXjsOpmKVStNDv0bpFl wzasvEk5sNKrcWtePPPy vRthzV0gGrFgVpDrEGag bGFpblxmMVxmczIwXGxh sdtbUSKnTLptM0uaTlGn HQKewIwhVMsmt8SuCWQc DBCaCuopytMmPHToP71h bGVjdGVkXHBsYWluXGYx XGZzMjBcbGFuZzEwMzNc aGljaFxmMVxkYmNoXGYx NRjbY2gvLyViM3AzKDNr LmDitJElP5nmN6KclTnn YXJkXGludGJsXHNzcGFy KSQ0vSMusgUmtWXbnXVr EUDoOAhpKUZ0cMJcpepn tLYijpvbUHufztF6IREo YWluXGYxXGZzMjBcbGFu ZzEwMzNcaGljaFxmMVxk ZfFoUGIiUTwkF5mcNkLv Z5AwWFGoEnJaGzJMIOXj aXZlZFxwbGFpblxmMVxm czIwXGxhbmcxMDMzXGhp W9ptSgUnWOFwpMkiVBcf h7WlDPIvLYInXvieuwCg UVy3grOuSCDneOqukB81 Xfnirj58QRQiq8psHFIl P0VtpIWaZUTqcUWuVLns MDhcdHJwYWRkZmwzXHRy cGFkZHIxMDhcdHJwYWRk ZnIzXHRycGFkZHQwXHRy pSWwRFP9W6a0upOpLALx BLe1ftFoREKgNyZvfNSd DLR5DZl9VbhxwqX7mNNb Z6f0RqhdddZsIZcztFKl ia04OZOduvJmxGAyqVje hFCpBFD7UJYtCWLhIHVi PFV4JZTqRrNkszWxVFqi bGJyZHJiXGJyZHJzXGJy ATN9RQZtDjJqzkPoUAfz bGJyZHJsXGJyZHJzXGJy PIB1QPPyEsXhqsXqVKcq bGJyZHJyXGJyZHJzXGJy TDK6EEXmVtYgbeByKQhd bHBhZHQxMFxjbHBhZGZ0 A5yjiZClLDThOHyruGSk ZWYnO7wzeNGqQQwwBOPs cGFkZmwzXGNscGFkYjBc P8nyOLUeAmDbX8LhhOo2 MDAwXGNsdmVydGFsdFxj fTCbJHR3VQDfMPGmCXJt NYT9YUHxKlMpspWlNDqu bGJyZHJiXGJyZHJzXGJy WJA0KUItDbKiopTkVNer bGJyZHJsXGJyZHJzXGJy SXL1VSTxNpOhanZvGSag bGJyZHJyXGJyZHJzXGJy QOJ8GMRxJiDbyhRwCFbn bHBhZHQxMFxjbHBhZGZ0 G5xeoFCyXCJaVMettDEb XSTrR9ybnXDoDBpoVWZc cGFkZmwzXGNscGFkYjBc Q1apJYCwGsSlT1OgvTe8 NjAwXGNsdmVydGFsdFxj dCFjZMH9EFIzBGJfIAXi BDK3JBFqKeLixyDqWNxe bGJyZHJiXGJyZHJzXGJy EAB3LEOpFsBpvdYcOKlh bGJyZHJsXGJyZHJzXGJy ZIR4TYIaCrHdlpJeYZzy bGJyZHJyXGJyZHJzXGJy MUC0AGBlYvTnikEkDCvh bHBhZHQxMFxjbHBhZGZ0 N0sttMNhSEOqCHpvwOEi FLIkW3geqZWvIJwgMNMl cGFkZmwzXGNscGFkYjBc H4qzBSUzMpOpB6UwrXj2 YfJbVLBdvhIbpR81Qnmx j6OcNHPxKAM7MKuzQXge bFxwbGFpblxmMFxmczI0 XHBsYWluXGYxXGZzMjBc bGFuZzEwMzNcaGljaFxm AKohOfYyOQApOKtdT7dj IyObF7CcKDMaQqLgFH4c D8VwDkBzRLGzTuNxGFPm J5JlZBMePlpZR9auDVHl VVNTXHBsYWluXGYxXGZz MjBcbGFuZzEwMzNcaGlj aFxmMVxkYmNoXGYxXGxv E2rqMcFaA8KjFTGeOpUr rXMfV0byU4DgaPszPGTe XGludGJsXHNzcGFyYWF1 lNWzadAjeDwnqOvmaI3d ZjBcZnMyNFxwbGFpblxm MVxmczIwXGxhbmcxMDMz TQpfD9xoInRkEAAfvQpc LWwfw5UyHCKvEJFuSikk vcUqSXmxMn2xWDWsMEUk YWluXGYxXGZzMjBcbGFu ZzEwMzNcaGljaFxmMVxk DjIzPTZeSFhvZ1uqNqMe T8GlPXYxOsUqiYWrH3li V3GrlXfbTIRqUBiwjMCq VRUrtTSzHSQ4mDDddwXt zLrhtTxsgL5hSnJaKgXs NFxwbGFpblxmMVxmczIw MFfiejueUHCkHWqzU9yt SjGiVMKszKqhNCpjk2Jh XGYxXGNmMlxmczIwIDgv MjAvMjAyMFxwbGFpblxm MVxmczIwXGxhbmcxMDMz GMbsH3clWoOwKQVxlQms DPcri4YvYMRwZNEoWuct leXdLJd6jlUuGDWvgDea bT73Jdqecn45LOVaegRm q0VbAQBjQDE3QZepBOvn bFxwbGFpblxmMFxmczI0 XHBsYWluXGYxXGZzMjBc bGFuZzEwMzNcaGljaFxm HOxdSwDuIMJbNFgjY4qb ZjFcZnMyMFxwYXJ9 Diagnosis (test code = f7ihrIExVLDctPW9DUUi 34) BZEfn7cij3DgsTPvvXGb HMoptKIprkTgnc93aVD6 rR83HG8aECDwPiK5ENIv hvI8Zah3URZkBRGoeJUc V955l3urw9iurnTdzKR8 fVxwYXJkXHBsYWluXGZz UjTeDHetMPFzy5V9p1vu ZSBzdGFpbmVkIHNsaWRl wjNnY0EwFeHlNCVcBrSg GdZLw58rpIYcldqacGFk lRW5OYByiLGmkW1rv4bn KEEpXHBhclxwYXJcbGk3 MjBcbGluNzIwIFNRVUFN B4YQWVELHtARJg7CVQVI Ep4EVPTOGDlZCCcrTVoH O9GADG3WUOIAP05iK7OV SU6SGWJCO46NQWPBLCjI IxIBOP4JHvqbWTAtlGcq IKpstcUpdDBsTQnVH5dm YXJ9 Disclaimer (test code = z8yitSElYPPvmLSbPvGn 9844) SVEdYLOyh9tpOCEuaHBi ZzEwMzNcZnRuYmpcdWMx TSSzJcInh4vzq606eUWn d3cbEZTlOlB5eMKtCDRj vOTsW242EWLmLDyqm3ag b3KrDXDnqREyi0Y9APIJ aqvfpGt6pDcmG74rc6D5 CjlbH4aqLDFcEYAvU0On UA2mPRYtSsi6OIT8UAX4 TGNdMVWtN5WpWX1mCTPq vONvDUb1q2zroCgtVSZo QBJ6q3fgNDqgfgOfIY3q gy9dwDq1g6kteoUeUFVz RUKsgYWZZWAkE7SkpIuz Se1afUh3zCtkRqrmRUC1 Mps6VY9thq97rvx8pKyq WPFfztvdUfT7PVjnCBTi ccidCOx3ZWvaKNEhaUG1 JLNzkRXeI1CrIRCcFW5c ayw7XAB6FMpsCYGgHjL2 NDBcaGVhZGVyeTcyMFxm a109MWX8VoPyLC4tA6We l5L2rQ0pdYLiHHCykRDe ExJdGJUchw1hmTRmZCyy d9BoTYM8kqU5zEGcmDVv YWEvYQ87Fyovm7VyEoko IXZ9HRSvxwIvh1Pbn3zn UhXhocGnO1vzB6TzYXQr HZFvSWXmRvYugoBxe6Cc j4ClbPVvfZg2u5nkJEKn WCKgeTgzn0oqYCQ6MGEb T0T9jXGyk8syCXzhNSSo iIT4gvV7TDCikBGgX6Ec nL4iVUViYE1scuy9f0cg QSN1TVnyRYSsNlS5qsT1 NDBcaGVhZGVyeTcyMFxm u735CKX0LyFhDURbg0Sj M5QqpIhsL88neBxfX78d YKOigNuccE8azIqchK4t ZjBcZnMyNFxxbFxwbGFp yvsxRIqxonU1SUpyznjs WLFeQAfrB6rgYkCeUJPd bJkiMBwqx5LjMHYpFXZs HbholrP9JDENz11wGKZd d1BsSDSnbQ6hfKWqKOgr ioZghFU1HJehokWxAdBz waYxTZCiqH0mCHWsKN9r ZLBsxaUuyd4ixiUpWOZn BUHcY4AlejxgaLbhxuYz OZLepw6httThYYD3TXAS EV1BRKBkPGXfi20jBSLm pKkhhG8zdBNczeIsKONz m9NqoY5wrNNLLPJrM4po RC0lTRbpr1JnwBQkeGHq wEQ4UCPei9UqSxAucdFv yEXqnAAxM4UrkMdzL1ma AMOyKJBrboWmhZDgm0Wq PKIunET2fAFtAG6JYsBQ i64mARQhDLKTtkLzABKb wRdbrPG6iwA0lB1zLjZC ZiBhcHBsaWNhYmxlLCBj p172vt8wkwT3BDAcRMKm xbqys3YqDAGrUNEzbS79 HKDyGFZnfi4ivoppfQMv zeWkA9Shetb9yN0dRZTa YWluXGYxXGZzMjJcbGFu ZzEwMzNcaGljaFxmMVxk NpEiBDIwMSloP0qnWkSa ZnMyMlxwYXJ9 MD Castellanos
[2020-06-03 10:03] LABS: Absolute Lymphocytes (CBC) 0.7 K/uL (0.7-4.9); Basophils % 1.2 % (0-1.3); Hematocrit 42.6 % (39.6-49.0); Lymphocytes % 6.8 % (15.3-44.8); MPV 8.1 fL (7.6-11.3); RBC Red Blood Cell Count 4.76 M/uL (4.33-5.43)
[2020-06-03 10:18] LABS: Potassium 4.1 mmol/L (3.5-5.1)
[2020-06-03 10:28] LABS: Blood Morphology Comment NOT SEEN (NOT SEEN); Platelet Estimate ADEQ; White Blood Cell Scan OK (OK)
[2020-06-03] MEDS ORDERED: ALBUTEROL 2.5 MG/3 ML NEB SOL ONE (11:02)
[2020-06-03] MEDS ORDERED: dexAMETHasone 10 MG/ML VIAL ONE (11:02)
--- NOTE | 2020-06-03 11:26 | RAD REPORT ---
EXAM DESCRIPTION: Kandace Single View06/03/2020 11:01 am CLINICAL HISTORY: Cough COMPARISON: May 27, 2020 FINDINGS: Moderate right and zxbx-vg-kxegawgx left pulmonary opacities The heart is mildly enlarged IMPRESSION: Moderate right and bqlv-ya-nlrkoeac left pulmonary opacities likely pneumonia
--- NOTE | 2020-06-03 13:18 | EDPHYS ---
Physician Documentation [facility] Name: Alfredo Kulkarni Age: 79 yrs Sex: Male : 1940 Arrival Date: 06/03/2020 Time: 08:45 Bed 8 Private MD: ED Physician Eyad Castellanos HPI: 06/03 09:43 This 79 yrs old Male presents to ER via Wheelchair with complaints of pm1 Shortness Of Breath - covid+. 09:43 The patient has shortness of breath at rest, with light activity. Onset: The pm1 symptoms/episode began/occurred 2 week(s) ago. Duration: The symptoms are continuous. The patient's shortness of breath is aggravated by light activity. Associated signs and symptoms: Pertinent positives: productive cough, fever, Pertinent negatives: chest pain, nausea, vomiting. Severity of symptoms: in the emergency department the symptoms are worse. The patient has been recently seen at the [facility] Emergency Department, for similar complaints X-rays were performed. Historical: - Allergies: 09:15 No Known Allergies; iw - Home Meds: 09:15 eye drops daily [Active]; iw - PMHx: 09:15 None; iw - PSHx: 09:15 bladder tumor removal; prostate sx; iw - Immunization history:: Adult Immunizations up to date. - Social history:: Smoking status: Patient denies any tobacco usage or history of. ROS: 09:43 Eyes: Negative for injury, pain, redness, and discharge, ENT: Negative for injury, pm1 pain, and discharge, Neck: Negative for injury, pain, and swelling, Cardiovascular: Negative for chest pain, palpitations, and edema. 09:43 Abdomen/GI: Negative for abdominal pain, nausea, vomiting, diarrhea, and constipation, Back: Negative for injury and pain, MS/Extremity: Negative for injury and deformity, Skin: Negative for injury, rash, and discoloration. 09:43 Neuro: Negative for headache, weakness, numbness, tingling, and seizure. 09:43 Constitutional: Positive for body aches, fever. 09:43 Respiratory: Positive for cough, shortness of breath, at rest. Exam: 09:43 Constitutional: This is a well developed, well nourished patient who is awake, alert, pm1 and in no acute distress. Head/Face: Normocephalic, atraumatic. Chest/axilla: Normal chest wall appearance and motion. Nontender with no deformity. No lesions are appreciated. 09:43 Back: No spinal tenderness. No costovertebral tenderness. Full range of motion. Skin: Warm, dry with normal turgor. Normal color with no rashes, no lesions, and no evidence of cellulitis. MS/ Extremity: Pulses equal, no cyanosis. Neurovascular intact. Full, normal range of motion. 09:43 Cardiovascular: Exam negative for acute changes, Rate: normal, Rhythm: regular, Pulses: no pulse deficits are appreciated. 09:43 Respiratory: Breath sounds: decreased breath sounds, are located in both bases. 09:43 Abdomen/GI: Inspection: obese Palpation: abdomen is soft and non-tender, in all quadrants. 09:43 Neuro: Exam negative for acute changes, Orientation: is normal, Mentation: is normal, Motor: is normal, moves all fours. Vital Signs: 09:12 BP 141 / 67; Pulse 75; Resp 18 S; Temp 98.8; Pulse Ox 92% on R/A; Weight 124.74 kg; iw Height 5 ft. 6 in. (167.64 cm); 09:45 BP 141 / 68; Pulse 73; Resp 16; Pulse Ox 93% ; bp 10:30 BP 146 / 62; Pulse 73; Resp 16; Pulse Ox 94% ; bp 12:21 BP 131 / 67; Pulse 71; Resp 16; Pulse Ox 95% ; bp 13:09 BP 124 / 113; Pulse 71; Resp 20; Pulse Ox 86% ; bp 14:15 BP 130 / 61; Pulse 66; Resp 17; Pulse Ox 95% ; bp 15:42 BP 120 / 64; Pulse 61; Resp 17; Temp 98.9; Pulse Ox 96% ; bp 09:12 Body Mass Index 44.39 (124.74 kg, 167.64 cm) iw MDM: 09:28 Patient medically screened. pm1 13:14 Data reviewed: vital signs. Data interpreted: Pulse oximetry: on room air is 86 %. pm1 Interpretation: Patient sitting on bedside without oxygen therapy. Plan: O2 by NC applied. 13:16 Counseling: I had a detailed discussion with the patient and/or guardian regarding: the pm1 historical points, exam findings, and any diagnostic results supporting the discharge/admit diagnosis, lab results, radiology results, the need for further work-up and treatment in the hospital. 06/03 09:34 Order name: Basic Metabolic Panel; Complete Time: 10:36 pm1 06/03 09:34 Order name: CBC with Diff; Complete Time: 10:36 pm1 06/03 09:34 Order name: Chest Single View XRAY; Complete Time: 11:39 pm1 06/03 10:06 Order name: CBC Smear Scan; Complete Time: 10:36 EDMS 06/03 12:46 Order name: CRP; Complete Time: 13:41 pm1 06/03 09:34 Order name: IV Saline Lock; Complete Time: 10:16 pm1 06/03 09:34 Order name: Labs collected and sent; Complete Time: 10:16 pm1 Administered Medications: 09:45 Drug: NS 0.9% 1000 ml Route: IV; Rate: 1000 ml; Site: right antecubital; bp 13:31 Follow up: IV Status: Completed infusion; IV Intake: 1000ml bp 10:50 Drug: Decadron - Dexamethasone 10 mg Route: IVP; Site: right antecubital; bp 12:20 Follow up: Response: No adverse reaction bp 10:50 Drug: Albuterol 2.5 mg Route: Inhalation; bp Disposition: 06/04 08:23 Co-signature as Attending Physician, Eyad Castellanos MD I agree with the assessment and lissa plan of care. Disposition: 06/03/20 13:17 Hospitalization ordered by Everton Nicholson for Observation. Preliminary diagnosis are Pneumonia due to SARS-associated coronavirus, Hypoxia. - Bed requested for Intensive Care Unit. - Status is Observation. bp - Condition is Stable. - Problem is new. - Symptoms have improved. Signatures: Dispatcher [employer] Clair Parks RN RN dw Anderson, Corey, MD MD cha Williams, Irene, RN RN iw Marinas, Patrick, WEI CONTENT ADMINISTRATOR pm1 Ney De La Cruz RN RN bp Corrections: (The following items were deleted from the chart) 06/03 14:53 13:17 Hospitalization Ordered by Everton Nicholson DO for Observation. Preliminary dw diagnosis is Pneumonia due to SARS-associated coronavirus; Hypoxia. Bed requested for Telemetry/MedSurg (observation). Status is Observation. Condition is Stable. Problem is new. Symptoms have improved. pm1 15:58 14:53 06/03/2020 13:17 Hospitalization Ordered by Everton Nicholson DO for Observation. bp Preliminary diagnosis is Pneumonia due to SARS-associated coronavirus; Hypoxia. Bed requested for Intensive Care Unit. Status is Observation. Condition is Stable. Problem is new. Symptoms have improved. dw
--- NOTE | 2020-06-03 13:18 | ER ---
Nurse's Notes [facility] Name: Alfredo Kulkarni Age: 79 yrs Sex: Male : 1940 Arrival Date: 06/03/2020 Time: 08:45 Bed 8 Private MD: Diagnosis: Pneumonia due to SARS-associated coronavirus;Hypoxia Presentation: 06/03 09:12 Chief complaint: Patient states: tested positive for COVID about a week ago, still iw having difficulty breathing and fever, also has a cough, not eating much, having dry heaves. Coronavirus screen: cough unrelated to allergies, difficulty breathing, fatigue, fever, nausea, Client reports previous positive COVID test result. Ebola Screen: Patient negative for fever greater than or equal to 101.5 degrees Fahrenheit, and additional compatible Ebola Virus Disease symptoms Patient denies exposure to infectious person. Patient denies travel to an Ebola-affected area in the 21 days before illness onset. No symptoms or risks identified at this time. Initial Sepsis Screen: Does the patient meet any 2 criteria? No. Patient's initial sepsis screen is negative. Does the patient have a suspected source of infection? No. Patient's initial sepsis screen is negative. Risk Assessment: Do you want to hurt yourself or someone else? Patient reports no desire to harm self or others. Onset of symptoms was May 27, 2020. 09:12 Method Of Arrival: Wheelchair iw 09:12 Acuity: REILLY 3 iw Triage Assessment: 09:20 General: Appears in no apparent distress. uncomfortable, Behavior is cooperative, bp appropriate for age, anxious. Pain: Denies pain. EENT: No deficits noted. Neuro: No deficits noted. Cardiovascular: No deficits noted. Respiratory: Reports shortness of breath cough that is Onset: The symptoms/episode began/occurred 1 WK, the patient has moderate shortness of breath. GI: No signs and/or symptoms were reported involving the gastrointestinal system. : No signs and/or symptoms were reported regarding the genitourinary system. Derm: No deficits noted. Musculoskeletal: No deficits noted. Historical: - Allergies: 09:15 No Known Allergies; iw - Home Meds: 09:15 eye drops daily [Active]; iw - PMHx: 09:15 None; iw - PSHx: 09:15 bladder tumor removal; prostate sx; iw - Immunization history:: Adult Immunizations up to date. - Social history:: Smoking status: Patient denies any tobacco usage or history of. Screenin:30 Abuse screen: Denies threats or abuse. Denies injuries from another. Nutritional bp screening: No deficits noted. Tuberculosis screening: No symptoms or risk factors identified. Fall Risk None identified. Assessment: 09:20 General: SEE TRIAGE NOTE. Cardiovascular: Rhythm is sinus rhythm. Respiratory: Airway bp is patent Respiratory effort is even, labored, Breath sounds are coarse bilaterally. 10:34 Reassessment: ALL CURRENT ORDERS IN PROCESS, VS STABLE ON MONITOR. bp 12:22 Reassessment: ALL CURRENT ORDERS COMPLETED. DISPO PENDING. bp 13:09 Reassessment: PT DESAT WITH EXERTION 86% SP02 ON ROOM AIR SITTING UP IN BED. bp 13:31 Reassessment: ADMIT INITIATED, HOSPITALIST AT B/S. bp 14:15 Reassessment: ADMIT IN PROCESS, SPO2 IMPROVED ON 2LNC. bp Vital Signs: 09:12 BP 141 / 67; Pulse 75; Resp 18 S; Temp 98.8; Pulse Ox 92% on R/A; Weight 124.74 kg; iw Height 5 ft. 6 in. (167.64 cm); 09:45 BP 141 / 68; Pulse 73; Resp 16; Pulse Ox 93% ; bp 10:30 BP 146 / 62; Pulse 73; Resp 16; Pulse Ox 94% ; bp 12:21 BP 131 / 67; Pulse 71; Resp 16; Pulse Ox 95% ; bp 13:09 BP 124 / 113; Pulse 71; Resp 20; Pulse Ox 86% ; bp 14:15 BP 130 / 61; Pulse 66; Resp 17; Pulse Ox 95% ; bp 15:42 BP 120 / 64; Pulse 61; Resp 17; Temp 98.9; Pulse Ox 96% ; bp 09:12 Body Mass Index 44.39 (124.74 kg, 167.64 cm) iw ED Course: 08:45 Patient arrived in ED. as 09:14 Triage completed. iw 09:15 Arm band placed on. iw 09:23 Ney De La Cruz, RADAMES is Primary Nurse. bp 09:28 Cory Candelaria NP is PHCP. pm1 09:28 Eyad Castellanos MD is Attending Physician. pm1 09:30 Patient has correct armband on for positive identification. Bed in low position. Call bp light in reach. Side rails up X2. 09:45 Inserted saline lock: 20 gauge in right antecubital area, using aseptic technique. bp Blood collected. 11:01 Chest Single View XRAY In Process Unspecified. EDMS 13:17 Everton Nicholson DO is Hospitalizing Provider. pm1 15:42 No provider procedures requiring assistance completed. Patient admitted, IV remains in bp place. Administered Medications: 09:45 Drug: NS 0.9% 1000 ml Route: IV; Rate: 1000 ml; Site: right antecubital; bp 13:31 Follow up: IV Status: Completed infusion; IV Intake: 1000ml bp 10:50 Drug: Decadron - Dexamethasone 10 mg Route: IVP; Site: right antecubital; bp 12:20 Follow up: Response: No adverse reaction bp 10:50 Drug: Albuterol 2.5 mg Route: Inhalation; bp Intake: 13:31 IV: 1000ml; Total: 1000ml. bp Outcome: 13:17 Decision to Hospitalize by Provider. pm1 15:41 Admitted to ICU accompanied by tech, via wheelchair, room ICU 6, with chart. bp 15:41 Condition: stable 15:41 Instructed on the need for admit. 15:58 Patient left the ED. bp Signatures: Dispatcher [employer] Fawn Witt as Sonja Thorne, RN RN iw Cory Candelaria, WEI NURSE INFORMATICS EDUCATOR pm1 Ney De La Cruz, RADAMES RN bp
--- NOTE | 2020-06-03 14:12 | P.HP ---
Certification for Inpatient Patient admitted to: Observation With expected LOS: <2 Midnights Practitioner: I am a practitioner with admitting privileges, knowledge of patient current condition, hospital course, and medical plan of care. Services: Services provided to patient in accordance with Admission requirements found in Title 42 Section 412.3 of the Code of Federal Regulations Patient History Date of Service: 06/03/20 Allergies No Known Drug Allergies Allergy (Verified 03/15/15 04:34) Unknown Home Medications: Butenafine HCl [Mentax] 1 sylvia TOP DAILY 03/14/15 Latanoprost 1 gtt OPTH BEDTIME 03/14/15 Timolol 0.5% Opth [Timoptic 0.5% Opth*] 1 gtt OPTH DAILY 03/14/15 Cephalexin 500 mg PO TID #21 capsule 03/16/15 Codeine/APAP [Tylenol W/Codeine #3 tab] 1 tab PO Q6HP PRN #20 tab 03/16/15 - Past Medical/Surgical History Diabetic: No -: glaucoma, -: prostate cancer -: bladder mass -: foot fungus -: bladder tumor removal -: prostate surg - Social History Alcohol use: Yes CD- Drugs: No Caffeine use: Yes Physical Examination - Studies Laboratory Data (last 24 hrs) 06/03/20 09:45: WBC 10.7, Hgb 14.9, Hct 42.6, Plt Count 159 06/03/20 09:45: Sodium 139, Potassium 4.1, BUN 12, Creatinine 1.21, Glucose 127 H Assessment and Plan - Advance Directives Does patient have a Living Will: Yes Does patient have a Durable POA for Healthcare: Yes
[2020-06-03] MEDS ORDERED: ONDANSETRON 4 MG/2 ML VIAL IV PRN (15:57)
[2020-06-03] MEDS ORDERED: ACETAMINOPHEN 500 MG TAB PO PRN (15:57)
--- NOTE | 2020-06-03 15:59 | P.HP ---
Certification for Inpatient Patient admitted to: Observation With expected LOS: <2 Midnights Practitioner: I am a practitioner with admitting privileges, knowledge of patient current condition, hospital course, and medical plan of care. Services: Services provided to patient in accordance with Admission requirements found in Title 42 Section 412.3 of the Code of Federal Regulations Patient History Date of Service: 06/03/20 Primary Care Provider: Dr. Francis Reason for admission: Dyspnea History of Present Illness: 79-year-old male presented to the emergency room with increasing dyspnea. Patient was seen in the ER last week on April 26. He was diagnosis with COVID at that time. He was sent home. Tony complaint was loss of taste. Since that time he has been having increasing shortness of breath. It is worse with exertion. He denies any fever, chills. He denies any other symptoms including chest pain, nausea vomiting. He has been social distance seen. He uses a mask. No other family members sick with COVID. He believes he may have gotten this through another hospital. He is seen at [facility] for tongue cancer. In the ER patient evaluated. Vital signs stable but noted hypoxia noted with exertion. Room-air saturations in the mid 80s. CBC unremarkable. Sodium 139, potassium 4.1 %period% creatinine 1.2 with a GFR 58. Glucose 127. CRP elevated at 173. Chest x-ray showed bilateral viral pneumonia. Patient admitted for further evaluation and observation. When I saw the patient ER, he appeared stable. Patient with history of bladder, prostate and tongue cancer. Currently seen by [facility] for tongue cancer. He is to follow up for possible surgery. Allergies No Known Drug Allergies Allergy (Verified 03/15/15 04:34) Unknown Home medications list reviewed: Yes Home Medications: Butenafine HCl [Mentax] 1 sylvia TOP DAILY 03/14/15 Latanoprost 1 gtt OPTH BEDTIME 03/14/15 Timolol 0.5% Opth [Timoptic 0.5% Opth*] 1 gtt OPTH DAILY 03/14/15 Cephalexin 500 mg PO TID #21 capsule 03/16/15 Codeine/APAP [Tylenol W/Codeine #3 tab] 1 tab PO Q6HP PRN #20 tab 03/16/15 - Past Medical/Surgical History Diabetic: No -: Glaucoma -: Prostate cancer -: Bladder cancer -: Tongue cancer -: bladder tumor removal -: prostate surg Psychosocial/ Personal History: Patient is - Family History Family History: Reviewed- Non-Contributory - Social History Smoking Status: Never smoker Alcohol use: Yes CD- Drugs: No Caffeine use: Yes Place of Residence: Home Review of Systems General: As per HPI Eyes: Unremarkable ENT: Unremarkable Respiratory: Shortness of Breath, SOB with Excertion, As per HPI Cardiovascular: Unremarkable Gastrointestinal: Unremarkable Genitourinary: Unremarkable Musculoskeletal: Unremarkable Integumentary: Unremarkable Neurological: Unremarkable Lymphatics: Unremarkable Physical Examination - Physical Exam General: Alert, In no apparent distress, Oriented x3, Cooperative HEENT: Atraumatic Neck: Supple Respiratory: Diminished (To the bases bilateral) Cardiovascular: Normal pulses, Regular rate/rhythm Gastrointestinal: Normal bowel sounds, Soft and benign, Non-distended, No tenderness, No masses, No rebound, No guarding Musculoskeletal: No erythema, No tenderness, No warmth Integumentary: No tenderness/swelling, No erythema, No warmth, No cyanosis Neurological: Normal speech, Normal strength at 5/5 x4 extr, Normal tone, Normal affect - Studies Laboratory Data (last 24 hrs) 06/03/20 09:45: WBC 10.7, Hgb 14.9, Hct 42.6, Plt Count 159 06/03/20 09:45: Sodium 139, Potassium 4.1, BUN 12, Creatinine 1.21, Glucose 127 H Assessment and Plan - Plan Impression: Dyspnea secondary to bilateral COVID 19 pneumonia with hypoxia History of bladder, prostate and tongue cancer Plan: Patient will be admitted for further evaluation and treatment. Will start IV Solu-Medrol for COVID 19 infection. Will obtain influenza test. Will obtain blood cultures is well. Will continue with supplementation including vitamins. Will maintain oxygen above 93%. Pulmonology will be consulted. Will continue to reassess. Will monitor CRP. DVT prophylaxis in place. Will reassess tomorr ow. Possible discharge as early as tomorrow with the need for possible oxygen. Discharge Plan: Home Plan to discharge in: 24 Hours - Advance Directives Does patient have a Living Will: Yes Does patient have a Durable POA for Healthcare: Yes - Code Status/Comfort Care Code Status Assessed: Yes (Patient is full code) Time Spent Managing Pts Care (In Minutes): 55
[2020-06-03 17:06] VITALS: BMI 41.8
[2020-06-03] MEDS: ENOXAPARIN 40 MG/0.4 ML SQ SCH (17:27)
[2020-06-03] MEDS: METHYLPREDNISOLONE 125 MG INJ IV SCH ×2 (17:27→23:42)
[2020-06-04 05:39] LABS: Ferritin 1681.9 ng/mL (26-388); Magnesium 2.4 mg/dL (1.8-2.4); Potassium 4.2 mmol/L (3.5-5.1); Thyroid Stimulating Hormone 0.282 uIU/mL (0.360-3.740)
[2020-06-04] MEDS: METHYLPREDNISOLONE 125 MG INJ IV SCH ×3 (05:56→17:28)
[2020-06-04] MEDS: ENOXAPARIN 40 MG/0.4 ML SQ SCH (08:08)
[2020-06-04] MEDS: THIAMINE HCL 100 MG TABLET PO SCH (08:08)
[2020-06-04] MEDS: FOLIC ACID 1 MG TABLET PO SCH (08:08)
[2020-06-04] MEDS: ZINC SULFATE 220 MG CAP PO SCH (08:08)
[2020-06-04] MEDS: ASCORBIC ACID 500 MG TABLET PO SCH (08:08)
--- NOTE | 2020-06-04 08:10 | P.PN ---
Subjective Date of Service: 06/04/20 Primary Care Provider: Dr. Francis Chief Complaint: Dyspnea Subjective: Improving (Patient without any significant shortness of breath. Patient stable on 2 L per nasal cannula. Patient still feels slightly fatigued.) Physical Examination - Vital Signs Temperature: 97.1 F Blood Pressure: 159/81 Pulse: 81 Respirations: 18 Pulse Ox (%): 92 - Physical Exam General: Alert, In no apparent distress, Oriented x3, Cooperative HEENT: Atraumatic Neck: Supple Respiratory: Other (Patient breathing appropriately. No significant tachypnea or tachycardia noted.) Cardiovascular: Normal pulses, Regular rate/rhythm Gastrointestinal: Normal bowel sounds, No masses, No rebound, No guarding Neurological: Normal speech, Normal strength at 5/5 x4 extr, Normal tone, Normal affect - Studies Laboratory Data (last 24 hrs) 06/03/20 09:45: WBC 10.7, Hgb 14.9, Hct 42.6, Plt Count 159 06/03/20 09:45: Sodium 139, Potassium 4.1, BUN 12, Creatinine 1.21, Glucose 127 H Medications List Reviewed: Yes Assessment & Plan Discharge Plan: Home Plan to discharge in: 24 Hours Physician Review Additional Text: Impression: Dyspnea secondary to bilateral COVID 19 pneumonia with hypoxia History of bladder, prostate and tongue cancer Plan: Dyspnea secondary to bilateral COVID 19 pneumonia with hypoxia: Patient has done well. Continue IV Solu-Medrol and supplements. Maintain oxygen above 90%. Will ambulate patient this morning. Will make sure patient is not significantly tachycardic or tachypneic or hypoxic. Will consider discharge this morning after discussion with pulmonology. CRP still elevated but clinically patient appears stable. Patient will require home oxygen at discharge. Patient will need to quarantine at home. History of bladder, prostate and tongue cancer: Patient in process to follow up with [facility] to further address. Time Spent Managing Pts Care (In Minutes): 55
[2020-06-04] MEDS: TIMOLOL MALEATE 0.5% OPTH 5 ML BTL OPTH SCH (08:25)
--- NOTE | 2020-06-04 12:09 | P.CNS ---
Date of Consult: 06/04/20 Primary Care Provider: Dr. Francis Chief Complaint: Dyspnea Allergies No Known Drug Allergies Allergy (Verified 03/15/15 04:34) Unknown Home Medications: Latanoprost 1 gtt OPTH BEDTIME 03/14/15 Timolol 0.5% Opth [Timoptic 0.5% Opth*] 1 gtt OPTH DAILY 03/14/15 - Past Medical/Surgical History Diabetic: No -: Glaucoma -: Prostate cancer -: Bladder cancer -: Tongue cancer -: bladder tumor removal -: prostate surg Psychosocial/ Personal History: Patient is - Social History Alcohol use: Yes CD- Drugs: No Caffeine use: Yes Place of Residence: Home Physical Examination Temp Pulse Resp BP Pulse Ox 97.1 F 68 20 145/66 H 92 06/04/20 08:10 06/04/20 10:00 06/04/20 10:00 06/04/20 10:00 06/04/20 10:00 Laboratory Data (last 24 hrs) 06/04/20 04:43: Sodium 142, Potassium 4.2, BUN 19 H, Creatinine 1.06, Glucose 180 H, Magnesium 2.4
[2020-06-04] MEDS ORDERED: LATANOPROST 0.005% 2.5ML OPTH OPTH SCH (21:00)
[2020-06-05] MEDS: METHYLPREDNISOLONE 125 MG INJ IV SCH ×3 (00:02→12:00)
[2020-06-05] MEDS: ENOXAPARIN 40 MG/0.4 ML SQ SCH (08:20)
[2020-06-05] MEDS: TIMOLOL MALEATE 0.5% OPTH 5 ML BTL OPTH SCH (08:21)
[2020-06-05] MEDS: ZINC SULFATE 220 MG CAP PO SCH (08:22)
[2020-06-05] MEDS: ASCORBIC ACID 500 MG TABLET PO SCH (08:22)
[2020-06-05] MEDS: THIAMINE HCL 100 MG TABLET PO SCH (08:22)
[2020-06-05] MEDS: FOLIC ACID 1 MG TABLET PO SCH (08:22)
[2020-06-05 08:37] VITALS: O2SAT 90
--- NOTE | 2020-06-05 11:04 | P.DS ---
Admission Date: 06/04/20 Discharge Date: 06/05/20 Primary Care Provider: Dr. Francis Disposition: ROUTINE DISCHARGE Discharge Condition: GOOD Reason for Admission: Dyspnea Consultations: Pulmonary-Dr. Chavis Procedures: CXR: FINDINGS: Moderate right and [id number] left pulmonary opacities The heart is mildly enlarged IMPRESSION: Moderate right and [id number] left pulmonary opacities likely pneumonia Medical Problem List: Dyspnea secondary to bilateral COVID 19 pneumonia with hypoxia History of bladder, prostate and tongue cancer Brief History of Present Illness: 79-year-old male presented to the emergency room with increasing dyspnea. Patient was seen in the ER last week on April 26. He was diagnosis with COVID at that time. He was sent home. Tony complaint was loss of taste. Since that time he has been having increasing shortness of breath. It is worse with exertion. He denies any fever, chills. He denies any other symptoms including chest pain, nausea vomiting. He has been social distance seen. He uses a mask. No other family members sick with COVID. He believes he may have gotten this through another hospital. He is seen at [facility] for tongue cancer. In the ER patient evaluated. Vital signs stable but noted hypoxia noted with exertion. Room-air saturations in the mid 80s. CBC unremarkable. Sodium 139, potassium 4.1 %period% creatinine 1.2 with a GFR 58. Glucose 127. CRP elevated at 173. Chest x-ray showed bilateral viral pneumonia. Patient admitted for further evaluation and observation. When I saw the patient ER, he appeared stable. Patient with history of bladder, prostate and tongue cancer. Currently seen by [facility] for tongue cancer. He is to follow up for possible surgery. Hospital Course: Patient presented with dyspnea secondary to COVID pneumonia with hypoxia. Patient received IV steroids and supplements. Patient was seen by pulmonology. His condition has improved. CRP has declined. Respiratory status also improved. At discharge he is without significant shortness of breath. At discharge patient requires home oxygen. He is to continue with home oxygen to maintain sats above 90%. Patient currently on 2 L per nasal cannula. Home oxygen will be arranged prior to discharge. At discharge patient will also continue with prednisone 20 mg 1 pill twice daily for 7 days then 1 pill daily for 7 days. Patient will also continue with oral supplementation including vitamin-C, thiamine, and zinc. At discharge patient will also continue with DVT prophylaxis-Eliquis 5 mg 1 pill twice daily for 1 month. Education will provided. Pulmonology will follow up his care. Patient encouraged to continue with incentive spirometer. Patient will need a follow up with pulmonology in 1 week to follow up this hospitalization and continue his care. Patient may need to limit activities. Patient will need to continue with quarantine at home. Continue with social distancing and facemask. Continue with CDC guidelines. Patient with history of prostate, bladder and tongue cancer. Follow up with [facility] to further address. Vital Signs/Physical Exam: Temp Pulse Resp BP Pulse Ox 97 F 71 22 H 174/82 H 95 06/05/20 08:00 06/05/20 08:00 06/05/20 04:00 06/05/20 08:00 06/05/20 08:00 General: Alert, In no apparent distress, Oriented x3, Cooperative HEENT: Atraumatic Neck: Supple Respiratory: Clear to auscultation bilaterally Cardiovascular: Normal pulses, Regular rate/rhythm Gastrointestinal: Normal bowel sounds, No tenderness, No masses, No rebound, No guarding Integumentary: No tenderness/swelling Neurological: Normal speech, Normal strength at 5/5 x4 extr, Normal tone, Normal affect Laboratory Data at Discharge: WBC 10.7 K/uL (4.3-10.9) 06/03/20 09:45 Hgb 14.9 g/dL (13.6-17.9) 06/03/20 09:45 Hct 42.6 % (39.6-49.0) 06/03/20 09:45 Plt Count 159 K/uL (152-406) 06/03/20 09:45 Sodium 142 mmol/L (136-145) 06/04/20 04:43 Potassium 4.2 mmol/L (3.5-5.1) 06/04/20 04:43 BUN 19 mg/dL (7-18) H 06/04/20 04:43 Creatinine 1.06 mg/dL (0.55-1.3) 06/04/20 04:43 Glucose 180 mg/dL (74-106) H 06/04/20 04:43 Magnesium 2.4 mg/dL (1.8-2.4) 06/04/20 04:43 Home Medications: Latanoprost 1 gtt OPTH BEDTIME 03/14/15 Timolol 0.5% Opth [Timoptic 0.5% Opth*] 1 gtt OPTH DAILY 03/14/15 Apixaban [Eliquis] 5 mg PO BID #60 tablet 06/05/20 Ascorbic Acid [Vitamin C*] 500 mg PO DAILY #30 tablet 06/05/20 Thiamine HCl [Vitamin B-1*] 100 mg PO DAILY #30 tablet 06/05/20 Zinc Sulfate [Zinc Sulfate*] 220 mg PO DAILY #30 cap 06/05/20 predniSONE [Prednisone*] 20 mg PO SEECOM #21 tab 06/05/20 New Medications: Apixaban [Eliquis] 5 mg PO BID #60 tablet predniSONE [Prednisone*] 20 mg PO SEECOM #21 tab Thiamine HCl [Vitamin B-1*] 100 mg PO DAILY #30 tablet Ascorbic Acid [Vitamin C*] 500 mg PO DAILY #30 tablet Zinc Sulfate [Zinc Sulfate*] 220 mg PO DAILY #30 cap Patient Discharge Instructions: 1. Follow up with PCP in 1 week to follow up this hospitalization. 2. Patient presented with dyspnea secondary to COVID pneumonia with hypoxia. Patient received IV steroids and supplements. Patient was seen by pulmonology. His condition has improved. CRP has declined. Respiratory status also improved. At discharge he is without significant shortness of breath. At discharge patient requires home oxygen. He is to continue with home oxygen to maintain sats above 90%. Patient currently on 2 L per nasal cannula. Home oxygen will be arranged prior to discharge. At discharge patient will also continue with prednisone 20 mg 1 pill twice daily for 7 days then 1 pill daily for 7 days. Patient will also continue with oral supplementation including vitamin-C, thiamine, and zinc. At discharge patient will also continue with DVT prophylaxis-Eliquis 5 mg 1 pill twice daily for 1 month. Education will provided. Pulmonology will follow up his care. Patient encouraged to continue with incentive spirometer. Patient will need a follow up with pulmonology in 1 week to follow up this hospitalization and continue his care. Patient may need to limit activities. Patient will need to continue with quarantine at home. Continue with social distancing and facemask. Continue with CDC guidelines. 3. Patient with history of prostate, bladder and tongue cancer. Follow up with [facility] to further address. Diet: AHA Activity: Ad kalpesh Time spent managing pt's care (in minutes): 55
--- NOTE | 2020-06-05 11:31 | P.PN ---
Subjective Date of Service: 06/05/20 Primary Care Provider: Dr. Francis Chief Complaint: Pneumonia due to coronal wire S Subjective: Improving (Patient is improving doing well no new complaints has a nasal cannula oxygen) Review of Systems General: Malaise Respiratory: Shortness of Breath Physical Examination - Vital Signs Temperature: 97 F Blood Pressure: 174/82 Pulse: 71 Respirations: 22 Pulse Ox (%): 95 - Studies Medications List Reviewed: Yes Assessment & Plan - Problems (Diagnosis) (1) Pneumonia due to human coronavirus Current Visit: Yes Status: Acute Plan: Patient is 79 years of age is doing well the nasal cannula oxygen agree with discharge on prednisone full anticoagulation CRP is declining vital signs stable to follow up with me in 1 or 2 weeks
[2020-06-05 13:08] VITALS: BP 140/74; TEMP 97.3
== END 2020-06-05 14:28 | disposition home or self-care (01) | DRG 177 ==
LOC: ER 08:45 → ERHOLD 14:00 → 3RD-ICU 15:42 → OBSVTOIN 06-04 11:49
PROVIDERS: ADMIT Family Medicine; ATTEND Family Medicine
DX: U07.1 COVID-19 (principal); J12.89 Other viral pneumonia; R09.02 Hypoxemia; Z79.891 Long term (current) use of opiate analgesic; Z79.899 Other long term (current) drug therapy; Z85.46 Personal history of malignant neoplasm of prostate; Z85.810 Personal history of malignant neoplasm of tongue; Z85.51 Personal history of malignant neoplasm of bladder
CPT/HCPCS: 36415; 71045; 80048; 82728; 83036; 83735; 84443; 85025; 86140; 87040; 87804; 94010; 96361; 96374; 99285; G0378; J1100; J1650; J2930

== ENCOUNTER 2023-09-03 16:20 | Emergency (ER) | payer OTHER ==
--- OUTSIDE RECORDS SUMMARY | 2023-09-03 16:22 | XMS REPORT | Clinical Summary ---
Author Name Unknown Organization [facility] Address [address] [place] [address] Care Team Providers Care Nozzle Worker Name Role Phone Pramod Foss MD Unavailable [phone] Theodore Nesbitt MD Primary Care Provider [phone] Unavailable [phone] Cortes Aldridge DMD Unavailable [phone] Armando Ac MD Unavailable [phone] Qi Ace MD PhD Unavailable [phone] Allergies No known active allergies Medications Medication Sig Dispensed Refills Start Date End Date Status latanoprost (XALATAN) 0.005% ophthalmic solution Administer 1 drop to both eyes at bedtime. 0 01/23/2020 Active multivit with minerals/lutein (MULTIVITAMIN 50 PLUS ORAL) Take 1 tablet by mouth daily. 0 05/27/2020 Active ZINC ACETATE ORAL Take 1 tablet by mouth daily. 0 Active tadalafil (CIALIS) 20 mg tablet 1 tablet (20 mg) as needed. 0 04/21/2023 Active tamsulosin (FLOMAX) 0.4 mg 24 hr capsule Take 1 capsule (0.4 mg) by mouth at bedtime. 0 04/21/2023 Active cholecalciferol, vitamin D3, 125 mcg (5,000 unit) capsule Take 1 capsule (5,000 Units) by mouth daily. 0 09/08/2022 Active ascorbic acid (C 500 TIMED RELEASED ORAL) Take 500 mg by mouth daily. 0 Active valsartan (DIOVAN) 160 mg tablet 0 05/31/2023 Active UNABLE TO FIND Take 1 tablet by mouth daily. Med Name: Go Lo weight loss 0 Active timolol (TIMOPTIC-XR) 0.5 % ophthalmic gel-forming Administer 1 drop to both eyes daily. 0 01/23/2020 07/20/2023 Discontinued (Not Applicable) sodium,potassium, mag sulfates 17.5-3.13-1.6 gram solr Take by mouth daily. 0 01/04/2023 07/20/2023 Discontinued (Not Applicable) mecobalamin (B12 ACTIVE ORAL) Take 1 drop by mouth daily. 0 04/21/2023 07/20/2023 Discontinued (Not Applicable) peg 3350-electrolytes (Golytely) 236-22.74-6.74 g solutionIndicatio ns:Colonoscopy planned Mix as directed and drink as directed. 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 Cancer Staging:Clinical:Stage 0(cTis, cN0, cM0) - Signed by Theodore Nesbitt MD on 05/27/2020 Encounters Date Type Department Care Team Description 07/20/2023 3:30 PM CDT Consult Colorectal Center - Colon and Rectal Surgery [address] [facility], 7th [place] [address] Qi Ace MD PhD 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 07/20/2023 12:35 PM CDT Ancillary Procedure CT Imaging [address] [facility], 7th [place] [address] Mildred Cabezas PA 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 07/20/2023 Travel 07/19/2023 9:18 AM CDT - 07/19/2023 11:59 PM CDT Hospital Encounter Cardiopulmonary Center [address] [place] [address] Main dg, 6th [place] [address] Mildred Cabezas PA 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 Discharge Disposition: Home 07/19/2023 9:03 AM CDT - 07/19/2023 9:17 AM CDT Hospital Encounter Diagnostic Laboratory Center [address] [place] [address] Main [facility], [place] [address] Mildred Cabezas PA 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 Discharge Disposition: Home 07/19/2023 Travel 06/30/2023 Orders Only Colorectal Center - Colon and Rectal Surgery [address] [place] [address] Main [facility], 7th [place] [address] Mildred Cabezas PA 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 (Primary Dx) 06/29/2023 Prep for Procedure Endoscopy Center [address] [place] [address] Main [facility], 5th [place] [address] Dandy Polk PA-C Personal history of colon polyps (Primary Dx); 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 06/29/2023 Orders Only Endoscopy Center [address] [place] [address] Main [facility], 5th [place] [address] Dandy Polk PA-C 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 (Primary Dx) 06/23/2023 Telephone [facility] [address] [place] [address] Aidee Morgan, flight communications operator Call 06/22/2023 3:15 PM CDT Anesthesia Event Endoscopy Center [address] [place] [address] Main [facility], 5th [place] [address] Bessie Warren MD 06/22/2023 2:54 PM CDT - 06/22/2023 4:54 PM CDT Surgery [facility]oscopy Center [address] [place] [address] Main dg, 5th [place] [address] Freddy Kunz MD FLEXIBLE COLONOSCOPY WITH ENDOSCOPIC MUCOSAL RESECTION 06/22/2023 10:56 AM CDT - 06/22/2023 6:40 PM CDT Hospital Encounter Endoscopy Center [facility] Main [facility], 5th [place] [address] Freddy Kunz MD Personal history of colon polyps Discharge Disposition: Home 06/22/2023 Travel 06/21/2023 11:59 PM CDT Anesthesia Event [facility] [address] [place] [address], 6th [place] [address] Jermaine Thomas RN 06/21/2023 4:30 PM CDT POEM Appointments [facility] [address] [place] [address], 6th [place] [address] Theodore Nesbitt MD 06/21/2023 Travel 05/27/2023 Orders Only Gastrointestinal Center - Gastroenterology, Hepatology & Nutrition [address] [place] [address], 7th [place] [address] Dandy Polk PA-C Colonoscopy planned (Primary Dx) 05/27/2023 Prep for Surgery [facility] - Gastroenterology, Hepatology & Nutrition [address] [place] [address], 7th [place] [address] Dandy Polk PA-C Personal history of colon polyps (Primary Dx) 05/27/2023 Telephone G[facility] - Gastroenterology, Hepatology & Nutrition [address] [place] [address], [facility] [place] [address] Dandy Polk PA-C 05/14/2023 2:00 PM CDT Consult Gastrointestinal Center - Gastroenterology, Hepatology & Nutrition [address] [place] [address], 7th [facility] [place] [address] Trenton Alexis MD Rodriguez Molinet, Tomas, MD Polyp of cecum (Primary Dx); Cancer of border of tongue 05/14/2023 Travel 01/25/2023 Orders Only Head and Neck Center - Surgical Oncology [address] [place] [address], 10th Floor, [place] [address] Sesar Burr PA Cancer of border of tongue (Primary Dx) 10/13/2022 10:30 AM UNDERGROUND MINER - 10/13/2022 11:59 PM UNDERGROUND MINER Hospital Encounter Head and Neck Center - Surgical Oncology [address] [facility] Main [facility], 10th Floor, [place] [address] Theodore Nesbitt MD Cancer of border of tongue Discharge Disposition: Home 10/13/2022 9:30 AM UNDERGROUND MINER Ancillary Procedure Neuro-Intervention al Ultrasound [address] [facility], 6th [place] [address] Sesar Burr PA Cancer of border of tongue 10/13/2022 Travel after 09/03/2022 Immunizations Name Administration Dates Next Due Pfizer SARS-CoV-2 Vaccination (Purple Cap) 11/16,10/26/2020 Surgical History Surgery Date Site/Laterality Comments NE GLOSSECTOMY <ONE-HALF TONGUE 09/16/2020 Mouth/Right Procedure: GLOSSECTOMY - LESS THAN 1/2 OF TONGUE; Surgeon: Theodore Nesbitt MD; Location: MAIN OR; Service: HN - HEAD & NECK SURGERY NE COLONOSCOPY FLX W/ENDOSCOPIC MUCOSAL RESECTION 06/22/2023 N/A Procedure: FLEXIBLE COLONOSCOPY WITH ENDOSCOPIC MUCOSAL RESECTION; Surgeon: Freddy Alex MD; Location: MAIN ENDOSCOPY; Service: GASTROENTEROLOGY Social History Tobacco Use Types Packs/Day Years Used Date Smoking Tobacco: Former Smokeless Tobacco: Former Alcohol Use Standard Drinks/Week Comments Yes 1 (1 standard drink = 0.6 oz pur e alcohol) Sex and Gender Information Value Date Recorded Sex Assigned at Male 05/17/2020 11:27 AM CDT Gender Identity Male 05/17/2020 11:24 AM CDT Sexual Orientation Straight 05/17/2020 11 :24 AM CDT Job Start Date Occupation Industry Not on file Not on file Not on file Obstetrics History Last Filed Vital Signs Vital Sign Reading Time Taken Comments Blood Pressure 152/78 07/20/2023 3:36 PM CDT Pulse 69 07/20/2023 3:36 PM CDT Temperature 36.3 C (97.3 F) 07/20/2023 3:36 PM CD T Respiratory Rate 20 07/20/2023 3:36 PM CDT Oxygen Saturation 96% 07/20/2023 3:36 PM CDT Inhaled Oxygen Concentration - - Weight 122.3 kg (269 lb 10 oz) 07/20/2023 3:36 P M CDT Height - - Body Mass Index 42.82 05/21/2020 11:15 AM CDT Plan of Treatment Upcoming Encounters Date Type Department Care Team Description 10/12/2023 10:00 AM UNDERGROUND MINER Ancillary Procedure Neuro-Intervention al Ultrasound [address] [facility], 6th [place] [address] [place] [address] [place] [id number] 10/12/2023 1:00 PM UNDERGROUND MINER Appointment Head and Neck Center - Surgical Oncology [address] [place] [address], 10th Floor, [place] [address] Theodore Nesbitt MD [address] [place] [id number] 11/30/2023 10:35 AM CDT Hospital Encounter Endoscopy Center [address] [place] [address], 5th [place] [address] Freddy Kunz MD [address] [place] [address] 11/30/2023 10:35 AM CDT - 11/30/2023 11:35 AM CDT Surgery Endoscopy Center [address] [place] [address], 5th [place] [address] Freddy Kunz MD [address] [place] [id number] DIAGNOSTIC FLEXIBLE COLONOSCOPY PROXIMAL TO SPLENIC FLEXURE Scheduled Procedures Name Priority Associated Diagnoses Date/Ti me DIAGNOSTIC FLEXIBLE COLONOSCOPY PROXIMAL TO SPLENIC FLEXURE Personal history of colon polyps 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 11/30/2023 10:35 AM CDT Health Maintenance Due Date Last Done Comments COVID-19 Vaccination ( season) 2023 11/16/2020, 10/26/2020 Procedures Procedure Name Priority Date/Time Associated Diagnosis Comments CT CHEST ABDOMEN PELVIS W CONTRAST Routine 07/20/2023 2:58 PM CDT 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 HISTORICAL ABORH Routine 07/19/2023 11:09 AM CDT 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 .CBC Routine 07/19/2023 9:08 AM CDT 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 TYPE AND SCREEN Routine 07/19/2023 9:08 AM CDT 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 APTT Routine 07/19/2023 9:08 AM CDT 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 PROTHROMBIN TIME Routine 07/19/2023 9:08 AM CDT 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 PHOSPHORUS LEVEL Routine 07/19/2023 9:08 AM CDT 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 MAGNESIUM LEVEL Routine 07/19/2023 9:08 AM CDT 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 HEMOGLOBIN A1C Routine 07/19/2023 9:08 AM CDT 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 C REACTIVE PROTEIN Routine 07/19/2023 9: 08 AM CDT 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 CARCINOEMBRYONIC ANTIGEN Routine 07/19/2023 9:08 AM CDT 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 COMPREHENSIVE METABOLIC PANEL Routine 07/19/2023 9:08 AM CDT 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 COMPLETE BLOOD COUNT W/ DIFFERENTIAL Routine 07/19/2023 9:08 AM CDT 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 EKG, 12-LEAD (SCHEDULED) Routine 07/19/2023 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 PATHOLOGY BIOPSY INTERPRETATION Routine 06/22/2023 3:42 PM CDT Personal history of colon polyps FLEXIBLE COLONOSCOPY WITH ENDOSCOPIC MUCOSAL RESECTION 06/22/2023 3:05 PM CDT Personal history of colon polyps Special Needs x 2 hours US HEAD NECK SOFT TISSUE Routine 10/13/2022 9:35 AM UNDERGROUND MINER Cancer of border of tongue after 09/03/2022 Results * CT Chest Abdomen Pelvis with Contrast (07/20/2023 2:58 PM CDT) Anatomical Region Laterality Modality Abdomen, Pelvis, Chest Computed Tomography 07/20/2023 3:19 PM CDT Impressions 07/20/2023 3:41 PM CDT No suspicious mass, lymphadenopathy or metastasis seen in the chest, abdomen or pelvis. ACTIONABLE ITEMS/RECOMMENDATIONS: None. Narrative 07/20/2023 3:41 PM CDT FULL RESULT: Examination: CT CHEST ABDOMEN PELVIS W CONTRAST on 07/20/2023 2:58 PM. 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 Technique: CT CHEST ABDOMEN PELVIS W CONTRAST. Findings: CHEST Lungs/pleura: No suspicious pulmonary nodules or opacities. 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 Likely minimal scarring or subsegmental atelectasis in the right lower lobe. No pleural effusions or pleural thickening. Lymphatics: No lymphadenopathy within the chest. Cardiovascular: No suspicious mediastinal mass or significant pericardial effusion. Mild atherosclerotic disease involves the coronary arteries. Thyroid: No lesions seen within the imaged thyroid gland. Lines/catheters: None. ABDOMEN/PELVIS Hepatobiliary: No suspicious liver lesions. No significant hepatic steatosis. The gallbladder is normal. No intrahepatic or extrahepatic biliary ductal dilatation. Pancreas: Normal. Spleen: No suspicious splenic lesions or splenomegaly. Genitourinary: The adrenal glands are normal. The left kidney contains slightly prominent parapelvic cysts. No hydronephrosis. The bladder is normal. The prostate gland demonstrates moderate benign prostatic hypertrophy. Gastrointestinal: No suspicious bowel wall thickening or mass seen by CT. Moderate diverticular disease of the descending and sigmoid colon, but without imaging evidence of acute diverticulitis. No bowel obstruction. Peritoneum-retroperitoneum: No ascites or suspicious peritoneal or retroperitoneal nodules. Lymphatics: No lymphadenopathy in the abdomen, pelvis or inguinal regions. Vessels: Moderate atherosclerotic disease of the abdominal aorta and its branching vessels. Soft tissues/bones: No suspicious soft tissue or osseous lesions in the chest, abdomen or pelvis. Moderate degenerative changes in the thoracic and lumbar spine consisting of osteophyte formations. Procedure Note Josefina Chin MD - 07/20/2023 FULL RESULT: Examination: CT CHEST ABDOMEN PELVIS W CONTRAST on 07/20/2023 2:58 PM. 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 Technique: CT CHEST ABDOMEN PELVIS W CONTRAST. Findings: CHEST Lungs/pleura: No suspicious pulmonary nodules or opacities. A 0.8 cm rightlower lobe nodule along the oblique fissure with fat and calcificationdensity likely represents benign hamartoma (series 7 image 92). Likelyminimal scarring or subsegmental atelectasis in the right lower lobe. Nopleural effusions or pleural thickening. Lymphatics: No lymphadenopathy within the chest. Cardiovascular: No suspicious mediastinal mass or significant pericardialeffusion. Mild atherosclerotic disease involves the coronary arteries. Thyroid: No lesions seen within the imaged thyroid gland. Lines/catheters: None. ABDOMEN/PELVIS Hepatobiliary: No suspicious liver lesions. No significant hepaticsteatosis. The gallbladder is normal. No intrahepatic or extrahepaticbiliary ductal dilatation. Pancreas: Normal. Spleen: No suspicious splenic lesions or splenomegaly. Genitourinary: The adrenal glands are normal. The left kidney containsslightly prominent parapelvic cysts. No hydronephrosis. The bladder isnormal. The prostate gland demonstrates moderate benign prostatichypertrophy. Gastrointestinal: No suspicious bowel wall thickening or mass seen by CT.Moderate diverticular disease of the descending and sigmoid colon, butwithout imaging evidence of acute diverticulitis. No bowel obstruction. Peritoneum-retroperitoneum: No ascites or suspicious peritoneal orretroperitoneal nodules. Lymphatics: No lymphadenopathy in the abdomen, pelvis or inguinalregions. Vessels: Moderate atherosclerotic disease of the abdominal aorta and itsbranching vessels. Soft tissues/bones: No suspicious soft tissue or osseous lesions in thechest, abdomen or pelvis. Moderate degenerative changes in the thoracicand lumbar spine consisting of osteophyte formations. IMPRESSION: No suspicious mass, lymphadenopathy or metastasis seen in the chest,abdomen or pelvis. ACTIONABLE ITEMS/RECOMMENDATIONS: None. Mildred HEMPHILL IMG CT ORDERABLE S * Historical ABORh (07/19/2023 11:09 AM CDT) ABORh B POS 07/19/2023 11:10 AM CDT [facility] Blood Peripheral blood specimen / Unknown 07/19/2023 11:09 AM CDT 07/19/2023 11:09 AM CDT Mildred HEMPHILL BLOOD BANK TEST ORDERABLES [facility] [address] [place] [address] * (ABNORMAL) .CBC (07/19/2023 9:08 AM CDT) Pathologist Francisco White Blood Cell 6.7 4.1 - 10.5 K/uL 07/19/2023 9:45 AM CDT [facility] Comment:This result was prev iously suppressed from the chart. Red Blood Cell 5.05 4.30 - 6.04 M/uL 07/19/2023 9:45 AM CDT [facility] Hemoglobin 15.6 13.3 - 17.4 g/dL 07/19/2023 9:45 AM CDT [facility] Hematocrit 45.6 39.5 - 51.8 % 07/19/2023 9:45 AM CDT [facility] Mean Cell Volume 90 82 - 99 fL 07/19/2023 9:45 AM CDT [facility] Mean Cell Hemoglobin 30.9 26.6 - 33.2 pg 07/19/2023 9:45 AM CDT [facility] Mean Cell Hemoglobin Concentration 34.2 31.1 - 35.2 gm/dL 07/19/2023 9:45 AM CDT [facility] RDW-SD 41.6 37.5 - 49.7 fL 07/19/2023 9:45 AM CDT [facility] Red Cell Diameter Width 12.6 11.6 - 15.5 % 07/19/2023 9:45 AM T [facility] Platelet 134(L) 160 - 397 K/uL 07/19/2023 9:45 AM T [facility] Comment:This result was prev iously suppressed from the chart. Mean Platelet Volume 9.8 9.1 - 12.6 fL 07/19/2023 9:45 AM T [facility] Comment:This result was prev iously suppressed from the chart. INRBC 0.0 0.0 - 0.1 /100 WBC 07/19/2023 9:45 AM [facility] Comment: The INRBC (instrument NRBC) value reflects the enumeration of nucleated red blood cells contained in a 200uL sample of whole blood analyzed by the instrument. This value may differ from the NRBC value reported in a manual differential, which is based on a 100 cell differential. This result was previously suppressed from the chart. Neutrophil % 66.3 43.2 - 72.7 % 07/19/2023 9:45 AM T [facility] Comment:This result was prev iously suppressed from the chart. Lymphocyte % 22.6 16.8 - 46.2 % 07/19/2023 9:45 AM T [facility] Comment:This result was prev iously suppressed from the chart. Monocyte % 8.0 5.1 - 12.5 % 07/19/2023 9:45 AM T [facility] Comment:This result was prev iously suppressed from the chart. Eosinophil % 2.1 0.4 - 6.3 % 07/19/2023 9:45 AM T [facility] Comment:This result was prev iously suppressed from the chart. Basophil % 0.6 0.2 - 1.4 % 07/19/2023 9:45 AM T [facility] Comment:This result was prev iously suppressed from the chart. IGRE % 0.4 0.1 - 1.5 % 07/19/2023 9:45 AM CDT [facility] Comment: The IGRE% includes Metamyelocytes, Myelocytes and Promyelocytes. This result was previously suppressed from the chart. Neutrophil Abs 4.46 1.95 - 7.25 K/uL 07/19/2023 9:45 AM CDT [facility] Comment:This result was prev iously suppressed from the chart. Lymphocyte Abs 1.52 1.01 - 3.24 K/uL 07/19/2023 9:45 AM CDT [facility] Comment:This result was prev iously suppressed from the chart. Monocyte Abs 0.54 0.24 - 0.85 K/uL 07/19/2023 9:45 AM CDT [facility] Comment:This result was prev iously suppressed from the chart. Eosinophil Abs 0.14 0.02 - 0.50 K/uL 07/19/2023 9:45 AM CDT [facility] Comment:This result was prev iously suppressed from the chart. Basophil Abs 0.04 0.02 - 0.09 K/uL 07/19/2023 9:45 AM CDT [facility] Comment:This result was prev iously suppressed from the chart. IG Abs 0.03 0.01 - 0.12 K/uL 07/19/2023 9:45 AM CDT [facility] Comment:This result was prev iously suppressed from the chart. Blood Venipuncture / Unknown 07/19/2023 9:08 AM CDT 07/19/2023 9:12 AM CDT Mildred HEMPHILL LAB BLOOD ORDERA BLES [facility] Unless otherwise noted, all lab tests performed by: Division of Pathology and Laboratory Medicine [address] [place] [id number] * (ABNORMAL) Comprehensive Metabolic Panel (07/19/2023 9:08 AM CDT) Bilirubin Total 0.7 <=1.2 mg/dL 07/19/2023 9:57 AM CDT [facility] Comment: Indocyanine Green (ICG) may cause falsely elevated bilirubin results. Total and direct bilirubin must not be measured from samples containing indocyanine green. False elevation of total bilirubin can be seen in patients with IgG concentrations above 28 g/L. This result was previously suppressed from the chart. Bilirubin Direct 0.2 <=0.3 mg/dL 07/19/2023 9:57 AM [facility] Comment: Indocyanine Green (ICG) may cause falsely elevated bilirubin results. Total and direct bilirubin must not be measured from samples containing indocyanine green. This result was previously suppressed from the chart. Bilirubin Indirect 0.5 0.0 - 0.9 mg/dL 07/19/2023 9:57 AM T [facility] Comment:This result was prev iously suppressed from the chart. eGFR 64 >=60 mL/min/1. 73 sq. m 07/19/2023 9:57 AM [facility] Comment: The eGFRcr is calculated with the 2020 CKD-EPI creatinine equation using creatinine, patient's age, and sex for adults 18 years of age and older. Other factors, especially muscle mass, may affect accuracy and need to be considered. According to the Kidney Disease: Improving Global Outcomes (KDIGO) CKD Work Group 2012 Clinical Practice Guideline, chronic kidney disease (CKD) is defined as the abnormalities of kidney structure or function, present for more than 3 months, with implications for health. CKD should be classified by cause, GFR category, and albuminuria category. KDIGO guidelines provide the following GFR categories. Stage / Description / GFR mL/min/1.73 m2: G1* / Normal or high / >= 90 G2* / Mildly decreased / 60-89 G3a / Mildly to moderately decreased / 45-59 G3b / Moderately to severely decreased / 30-44 G4 / Severely decreased / 15-29 G5 / Kidney failure / <15 *In the absence of evidence of kidney damage, neither G1 nor G2 fulfill criteria for CKD. Tot Protein 6.7 6.4 - 8.3 gm/dL 07/19/2023 9:57 AM [facility] Comment:This result was prev iously suppressed from the chart. Calcium Level Total 9.0 8.2 - 10.2 mg/dL 07/19/2023 9:57 AM [facility] Comment:This result was prev iously suppressed from the chart. Alkaline Phosphatase 70 40 - 129 U/L 07/19/2023 9:57 AM T [facility] Comment:This result was prev iously suppressed from the chart. Albumin Level 4.0 3.5 - 5.2 gm/dL 07/19/2023 9:57 AM T [facility] Comment:This result was prev iously suppressed from the chart. AST 19 <=40 U/L 07/19/2023 9:57 AM T [facility] Comment:This result was prev iously suppressed from the chart. ALT 14 <=41 U/L 07/19/2023 9:57 AM T [facility] Comment:This result was prev iously suppressed from the chart. Sodium Level 138 136 - 145 mmol/L 07/19/2023 9:57 AM [facility] Comment:This result was prev iously suppressed from the chart. Potassium Level 4.3 3.4 - 4.5 mmol/L 07/19/2023 9:57 AM T [facility] Comment:This result was prev iously suppressed from the chart. Chloride 103 98 - 107 mmol/L 07/19/2023 9:57 AM T [facility] Comment:This result was prev iously suppressed from the chart. CO2 28 22 - 29 mmol/L 07/19/2023 9:57 AM [facility] Comment:This result was prev iously suppressed from the chart. Anion Gap 7 4 - 14 mmol/L 07/19/2023 9:57 AM T [facility] Comment:This result was prev iously suppressed from the chart. Creatinine 1.15 0.67 - 1.17 mg/dL 07/19/2023 9:57 AM T [facility] Comment:This result was prev iously suppressed from the chart. BUN 16 6 - 23 mg/dL 07/19/2023 9:57 AM [facility] Comment:This result was prev iously suppressed from the chart. Glucose Level 112(H) 70 - 99 mg/dL 07/19/2023 9:57 AM T [facility] Comment: Effective 04/15/16, the glucose reference intervals have been updated based on [place] [employer] guidelines (Standards of Medical Care in Diabetes 2016. Diabetes Care 2016; 39: S13-S22). Fasting blood glucose: Normal: 70-99 mg/dL Impaired fasting glucose (increased risk for diabetes or pre-diabetes): 100-125 mg/dL Diabetes mellitus: >/=126 mg/dL Random blood glucose: Normal: 70-199 mg/dL Note: Random glucose >100 mg/dL is associated with increased risk for diabetes. This result was previously suppressed from the chart. Blood Venipuncture / Unknown 07/19/2023 9:08 AM CDT 07/19/2023 9:12 AM CDT Mildred HEMPHILL LAB BLOOD ORDERA BLES Performing Organization Address City/[facility]/ZIP Co de Phone Number [facility] Unless otherwise noted, all lab tests performed by: Division of Pathology and Laboratory Medicine [address] [place] [id number] * aPTT (07/19/2023 9:08 AM CDT) Activated PTT 27.2 24.1 - 35.5 second(s) 07/19/2023 9:50 AM CDT [facility] Blood Venipuncture / Unknown 07/19/2023 9:08 AM CDT 07/19/2023 9:12 AM CDT Mildred HEMPHILL LAB BLOOD ORDERA BLES Performing Organization Address City/[facility]/ZIP Co de Phone Number [facility] Unless otherwise noted, all lab tests performed by: Division of Pathology and Laboratory Medicine [address] [place] [id number] * Prothrombin Time with INR (07/19/2023 9:08 AM CDT) Prothrombin Time 13.0 11.9 - 14.5 second(s) 07/19/2023 9:50 AM CDT [facility] International Normalization Ratio 0.99 0.87 - 1.12 07/19/2023 9:50 AM CDT [facility] Blood Venipuncture / Unknown 07/19/2023 9:08 AM CDT 07/19/2023 9:12 AM CDT Mildred HEMPHILL LAB BLOOD ORDERA BLES [facility] Unless otherwise noted, all lab tests performed by: Division of Pathology and Laboratory Medicine [address] [place] [id number] * Type and Screen (07/19/2023 9:08 AM CDT) Pathologist [facility] ABORh B POS 07/19/2023 9:03 AM CDT [facility] ABSC Negative 07/19/2023 9:03 AM CDT [facility] Clot Expiration 07/22/2023 23:59 07/19/2023 9:03 AM CDT [facility] Historical Record Check Complete 07/19/2023 9:03 AM CDT [facility] Blood Venipuncture / Unknown 07/19/2023 9:08 AM CDT 07/19/2023 9:35 AM CDT Mildred HEMPHILL BLOOD BANK TEST ORDERABLES [facility] [address] [facility] [address] [place] [address] * CRP (07/19/2023 9:08 AM CDT) Pathologist [facility] CRP (C Reactive Protein) 3.32 mg/L 07/19/2023 10:14 AM CDT [facility] Blood Venipuncture / Unknown 07/19/2023 9:08 AM CDT 07/19/2023 9:12 AM CDT Narrative [facility] - 07/19/2023 10:14 AM CDT Adult Reference ranges for HS CRP assay are as follows: Reference ranges when used to assess cardiac risk: <1.00 mg/L Low cardiovascular risk 1.00-3.00 mg/L Average cardiovascular risk >3.00 mg/L High cardiovascular risk Reference ranges when used to assess inflammatory responses: Less than or equal to 10.00 mg/L. Mildred HEMPHILL LAB BLOOD ORDERA BLES [facility] Unless otherwise noted, all lab tests performed by: Division of Pathology and Laboratory Medicine [address] [place] [id number] * (ABNORMAL) Phosphorus Level (07/19/2023 9:08 AM CDT) Phosphorus Level 2.4(L) 2.5 - 4.5 mg/dL 07/19/2023 9:57 AM CDT [facility] Blood Venipuncture / Unknown 07/19/2023 9:08 AM CDT 07/19/2023 9:12 AM CDT Mildred HEMPHILL LAB BLOOD ORDERA BLES [facility] Unless otherwise noted, all lab tests performed by: Division of Pathology and Laboratory Medicine [address] [place] [id number] * Magnesium Level (07/19/2023 9:08 AM CDT) Magnesium Level 2.1 1.6 - 2.6 mg/dL 07/19/2023 9:57 AM CDT [facility] Blood Venipuncture / Unknown 07/19/2023 9:08 AM CDT 07/19/2023 9:12 AM CDT Mildred HEMPHILL LAB BLOOD ORDERA BLES [facility] Unless otherwise noted, all lab tests performed by: Division of Pathology and Laboratory Medicine [address] [place] [id number] * Hemoglobin A1c (07/19/2023 9:08 AM CDT) Hemoglobin A1c 5.6 4.3 - 5.6 % 07/19/2023 10:04 AM CDT [facility] Blood Venipuncture / Unknown 07/19/2023 9:08 AM CDT 07/19/2023 9:12 AM CDT Narrative [facility] - 07/19/2023 10:04 AM CDT HbA1c values >=6.5% are diagnostic of diabetes mellitus. Diagnosis should be confirmed by repeat testing. Therapeutic Action suggested: >8.0% HbA1c; Goal of therapy: <7.0% HbA1c Mildred HEMPHILL LAB BLOOD ORDERA BLES Performing Organization Address City/[facility] Co de Phone Number [facility] Unless otherwise noted, all lab tests performed by: Division of Pathology and Laboratory Medicine [address] [place] [id number] * CEA (07/19/2023 9:08 AM CDT) Carcinoembryonic Antigen 1.4 <=3.8 ng/mL 07/19/2023 9:58 AM CDT [facility] Blood Venipuncture / Unknown 07/19/2023 9:08 AM CDT 07/19/2023 9:12 AM CDT Narrative [facility] - 07/19/2023 9:58 AM CDT Reference Ranges (age 20-69 years): Non-smoker: 0.0 - 3.8 ng/mL Smoker: 0.0 - 5.5 ng/mL This test is measured by electrochemiluminescence immunoassay on [employer] immunoassay analyzers. Results obtained in different methods are not interchangeable. Mildred HEMPHILL LAB BLOOD ORDERA BLES Performing Organization Address [facility]/ZIP Co de Phone Number [facility] Unless otherwise noted, all lab tests performed by: Division of Pathology and Laboratory Medicine [address] [place] [id number] * EKG, 12-Lead (Scheduled) (07/19/2023) Mildred Alicia Priscilla HEMPHILL ECG ORDERABLES MICHAEL IECG * Pathology Biopsy Interpretation (06/22/2023 3:42 PM CDT) Submitted Clinical History Personal history of colon polyps [Z86.010] 06/27/2023 1:47 PM CDT [facility] Diagnosis A: Cecum, 3 mm polyp , biopsy: Fragment of tubular adenoma. 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 TUMOR INVADES SUBMUCOSA. No lymphovascular invasion identified. No perineural invasion identified. TUMOR IS LESS THAN 0.1 CM FROM THE DEEP MARGIN; mucosal (peripheral) margin status cannot be determined due to specimen fragmentation. C: Colon, descending, 3 mm polyp, biopsy: Tubular adenoma. Fecal material. 06/27/2023 1:47 PM CDT [facility] Comment Select slide(s)(part B) are also reviewed by Dr. Jenny Whitley, Gastrointestinal Pathology section, who concurs. DNA MISMATCH REPAIR IMMUNOHISTOCHEMISTRY (performed on block B1 at [facility]) INTACT. Intact nuclear expression is evident for all four proteins (MLH1, MSH2, MSH6, PMS2) in carcinoma cells and in non-neoplastic cells that serve as internal controls. Therefore, the likelihood of defective DNA mismatch repair/high levels of microsatellite instability (MSI-H) in the tumor is low. Immunohistochemistry is approximately 90-95% sensitive for detection of MSI-H. Most of the MSI-H carcinomas missed by immunohistochemistry occur in patients with Gifford syndrome/hereditary non-polyposis colorectal cancer (HNPCC) syndrome. 06/27/2023 1:47 PM CDT [facility] Gross Description A: Cecum, biopsy, a. cecal polyp 3mm: Two nunes-yellow pieces of tissue measuring 0.2 and 1.0 cm, entirely submitted in A1. GM B: Cecum, biopsy, cecal polyp 30mm: Multiple friable nunes-red pieces of tissue measuring 2.5 x 1.6 x 0.7 cm in aggregate. The two largest pieces (1.1 x 1.0 x 0.7 cm and 1.1 x 0.8 x 0.6 cm) are inked and sectioned, entirely submitted in B1 and B2, respectively. The remaining specimen is entirely submitted in B3. GM C: Colon, descending, descending polyp 3mm: One yellow-pink piece of tissue measuring 0.9 cm, admixed with probable plant material, entirely submitted in C1. GM 06/27/2023 1:47 PM CDT [facility] Biomarker Block(s) PRIMARY TUMOR: block B1 06/27/2023 1:47 PM CDT [facility] Disclaimer "Some tests reported here may have been developed and performance characteristics determined by [facility] Pathology and Laboratory Medicine. These tests have not been specifically cleared or approved by the U.S. Food and Drug Administration. If applicable, controls were reviewed and showed appropriate reactivity." 06/27/2023 1:47 PM CDT [facility] Tissue specimen (specimen) (Cecum, Biopsy) 06/22/2023 3:42 PM CDT 06/23/2023 8:03 AM CDT Tissue specimen (specimen) (Cecum, Biopsy) 06/22/2023 4:58 PM CDT 06/23/2023 8:03 AM CDT Tissue specimen (specimen) (Colon, Descending) 06/22/2023 5:19 PM CDT 06/23/2023 8:03 AM CDT Freddy Alex MD LAB PATHOLOG Y ORDERABLES Performing Organization Address City/State/[facility] Co de Phone Number [facility] [place] [address], * US HEAD NECK SOFT TISSUE (10/13/2022 9:35 AM UNDERGROUND MINER) Anatomical Region Laterality Modality Head, Neck Ultrasound 10/13/2022 9:34 AM UNDERGROUND MINER Impressions 10/13/2022 9:50 AM UNDERGROUND MINER 1. No worrisome cervical adenopathy. 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 Indication: Assess disease status Comparison: 10/14/2021 and 04/08/2021 Technique: Real-time grayscale and power Doppler ultrasound. Findings: Right lateral neck: No worrisome adenopathy. Submental and submandibular region. No worrisome adenopathy. Left lateral neck: No worrisome adenopathy. Procedure Note Jett Metz MD - 10/13/2022 FULL RESULT: Examination: ULTRASOUND SOFT TISSUE HEAD&NECK on 10/13/2022 9:34 AM Clinical History: History of squamous cell carcinoma of the oral tonguestatus post treatment. Indication: Assess disease status Comparison: 10/14/2021 and 04/08/2021 Technique: Real-time grayscale and power Doppler ultrasound. Findings: Right lateral neck: No worrisome adenopathy. Submental and submandibular region. No worrisome adenopathy. Left lateral neck: No worrisome adenopathy. IMPRESSION: 1. No worrisome cervical adenopathy. Sesar STEVENS ORDERABLES after 09/03/2022 Care Teams Nozzle Worker Relationship Specialty Start Date End Date Pramod Foss MD PCP - External Referring Oral Surgery 05/02/20 Theodore Nesbitt MD [address] [place] [id number] PCP - General Head and Neck Surgery 05/08/20 Flakito Howard, RD [address] [place] [address] [phone] Clinical Dietitian Nutrition 05/28/20 Cortes Aldridge DMD [address] [place] [address] [phone] Consulting Physician Dental Oncology 05/21/20 Armando Ac MD [address] [place] [address] [phone] Consulting Physician Gastroenterology, Hepatology and Nutrition 05/14/23 Qi Ace MD PhD [address] [place] [phone] Consulting Physician Surgical Oncology 07/20/23
[2023-09-03] MEDS ORDERED: LIDOCAINE 1% 20 ML MDV ONE (17:32)
--- NOTE | 2023-09-03 17:39 | RAD REPORT ---
EXAM DESCRIPTION: RAD - Hand Right 3 View - 09/03/2023 5:31 pm CLINICAL HISTORY: Right hand pain status post injury FINDINGS: Medial dislocation fifth proximal phalanx. No fracture
--- NOTE | 2023-09-03 18:02 | EDPHYS ---
Physician Documentation [facility] Name: Alfredo Kulkarni Age: 82 yrs Sex: Male : 1940 Arrival Date: 09/03/2023 Time: 16:20 Bed 9 Private MD: ED Physician Aracely Wilhelm HPI: 09/03 16:52 This 82 yrs old Male presents to ER via Unassigned with complaints of Finger Injury, cp3 Dislocated finger. 16:52 the patient endorses he hit his hand on a hard surface and right 5th digit is turned cp3 sideways. no other injury. Historical: - Allergies: 17:27 No Known Drug Allergies; hb - Immunization history:: Adult Immunizations up to date. - Social history:: Smoking status: Patient denies any tobacco usage or history of. ROS: 16:52 Eyes: Negative for injury, pain, redness, and discharge, ENT: Negative for injury, cp3 pain, and discharge, Neck: Negative for injury, pain, and swelling, Cardiovascular: Negative for chest pain, palpitations, and edema, Respiratory: Negative for shortness of breath, cough, wheezing, and pleuritic chest pain, Abdomen/GI: Negative for abdominal pain, nausea, vomiting, diarrhea, and constipation, Back: Negative for injury and pain, : Negative for injury, bleeding, discharge, and swelling, Skin: Negative for injury, rash, and discoloration, Neuro: Negative for headache, weakness, numbness, tingling, and seizure, Psych: Negative for depression, anxiety, suicide ideation, homicidal ideation, and hallucinations, Allergy/Immunology: Negative for hives, rash, and allergies, Endocrine: Negative for neck swelling, polydipsia, polyuria, polyphagia, and marked weight changes, Hematologic/Lymphatic: Negative for swollen nodes, abnormal bleeding, and unusual bruising, 16:52 MS/extremity: Positive for injury or acute deformity, tenderness, Exam: 16:52 Constitutional: This is a well developed, well nourished patient who is awake, alert, cp3 and in no acute distress. Head/Face: Normocephalic, atraumatic. Eyes: Pupils equal round and reactive to light, extra-ocular motions intact. Lids and lashes normal. Conjunctiva and sclera are non-icteric and not injected. Cornea within normal limits. Periorbital areas with no swelling, redness, or edema. ENT: Nares patent. No nasal discharge, no septal abnormalities noted. Tympanic membranes are normal and external auditory canals are clear. Oropharynx with no redness, swelling, or masses, exudates, or evidence of obstruction, uvula midline. Mucous membranes moist. Neck: Trachea midline, no thyromegaly or masses palpated, and no cervical lymphadenopathy. Supple, full range of motion without nuchal rigidity, or vertebral point tenderness. No Meningismus. Chest/axilla: Normal chest wall appearance and motion. Nontender with no deformity. No lesions are appreciated. Cardiovascular: Regular rate and rhythm with a normal S1 and S2. No gallops, murmurs, or rubs. Normal PMI, no JVD. No pulse deficits. Respiratory: Lungs have equal breath sounds bilaterally, clear to auscultation and percussion. No rales, rhonchi or wheezes noted. No increased work of breathing, no retractions or nasal flaring. Abdomen/GI: Soft, non-tender, with normal bowel sounds. No distension or tympany. No guarding or rebound. No evidence of tenderness throughout. Back: No spinal tenderness. No costovertebral tenderness. Full range of motion. Skin: Warm, dry with normal turgor. Normal color with no rashes, no lesions, and no evidence of cellulitis. 16:52 Musculoskeletal/extremity: Extremities: grossly normal except: tenderness, deformity, right 5th digit dislocated laterally at IP joint, Vital Signs: 17:25 BP 136 / 86; Pulse 68; Resp 16; Temp 98.4(TE); Pulse Ox 100% on R/A; Weight 120.2 kg; hb Height 5 ft. 6 in. ; Pain 4/10; 17:25 Body Mass Index 42.77 (120.20 kg, 167.64 cm) hb 17:25 Pain Scale: Adult hb Procedures: 17:58 Reduction: of the DIP of right little finger, using traction, manipulation, flexion, cp3 Immobilized with finger splint, Patient tolerated well. MDM: 16:25 Patient medically screened. cp3 17:58 Differential diagnosis: finger fracture vs dislocation vs ligament injury. Data cp3 reviewed: vital signs, nurses notes, right hand xray interpreted by me- no fx + dislocation. Consideration of Admission/Observation Escalation of care including admission/observation considered. I considered the following discharge prescriptions or medication management in the emergency department Medications were administered in the Emergency Department. See MAR. Test considered but Not performed: Other Details patient declined repeat xray- satisfied with reduction. Response to treatment: the patient's symptoms have markedly improved after treatment. 18:03 ED course: patient tolerated reduction well. dc home. cp3 09/03 16:51 Order name: Hand Right 3 View XRAY; Complete Time: 17:43 cp3 09/03 17:57 Order name: Finger Splint; Complete Time: 18:00 cp3 Administered Medications: 17:38 Drug: Lidocaine Infiltration (1 %) 10 ml 20 ml Infiltration once; to bedside Volume: 20 bp ml; Route: Infiltration; Disposition Summary: 09/03/23 18:02 Discharge Ordered Notes: Location: Home cp3 Problem: an acute exacerbation cp3 Condition: Stable cp3 Diagnosis - Unspecified dislocation of unspecified finger, initial encounter - right 5th finger cp3 at IP joint sp reduction - Pain in right finger(s) - right 5th finger cp3 Followup: cp3 - With: Everett Monk MD - When: - Reason: Recheck today's complaints Discharge Instructions: - Discharge Summary Sheet cp3 - Finger or Thumb Dislocation cp3 Forms: - Medication Reconciliation Form cp3 - Thank You Letter cp3 - Antibiotic Education cp3 - Prescription Opioid Use cp3 - Patient Portal Instructions cp3 - Leadership Thank You Letter cp3 Prescriptions: - Naprosyn 500 mg Oral Tablet - take 1 tablet ORAL route 2 times per day take with food; 30 tablet; Refills: 0, cp3 Product Selection Permitted - Cyclobenzaprine 5 mg Oral Tablet - take 1 tablet ORAL route 3 times per day As needed; 15 tablet; Refills: 0, cp3 Product Selection Permitted Signatures: Dispatcher [employer] Aracely Ceja MD MD cp3 Caron Ramires RN RN Ney Winston RN RN bp
--- NOTE | 2023-09-03 18:02 | ER ---
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 Coronavirus screen: At this time, the client does not indicate any symptoms associated with coronavirus-19. Ebola Screen: No symptoms or risks identified at this time. Initial Sepsis Screen: Does the patient meet any 2 criteria? No. Patient's initial sepsis screen is negative. Does the patient have a suspected source of infection? No. Patient's initial sepsis screen is negative. Risk Assessment: Do you want to hurt yourself or someone else? Patient reports no desire to harm self or others. Onset of symptoms was September 03, 2023. 17:25 Method Of Arrival: Ambulatory hb 17:25 Acuity: REILLY 4 hb Historical: - Allergies: 17:27 No Known Drug Allergies; hb - Immunization history:: Adult Immunizations up to date. - Social history:: Smoking status: Patient denies any tobacco usage or history of. Screenin:00 [facility] ED Fall Risk Assessment (Adult) History of falling in the last 3 months, bp including since admission No falls in past 3 months (0 pts). Abuse screen: Denies threats or abuse. Denies injuries from another. Nutritional screening: No deficits noted. Tuberculosis screening: No symptoms or risk factors identified. Vital Signs: 17:25 BP 136 / 86; Pulse 68; Resp 16; Temp 98.4(TE); Pulse Ox 100% on R/A; Weight 120.2 kg; hb Height 5 ft. 6 in. ; Pain 4/10; 17:25 Body Mass Index 42.77 (120.20 kg, 167.64 cm) hb 17:25 Pain Scale: Adult hb ED Course: 16:22 Patient arrived in ED. ts1 16:25 Aracely Wilhelm MD is Attending Physician. cp3 17:27 Triage completed. hb 17:27 Ney De La Cruz, RN is Primary Nurse. bp 17:27 Arm band placed on. hb 17:33 Hand Right 3 View XRAY In Process Unspecified. EDMS 18:00 Everett Monk MD is Referral Physician. cp3 18:00 Patient has correct armband on for positive identification. bp 18:00 Assist provider with reduction of right little finger Immobilized with finger splint. bp Patient did not have IV access during this emergency room visit. Administered Medications: 17:38 Drug: Lidocaine Infiltration (1 %) 10 ml 20 ml Infiltration once; to bedside Volume: 20 bp ml; Route: Infiltration; Outcome: 18:02 Discharge ordered by MD. cp3 18:10 Discharged to home ambulatory, bp 18:10 Condition: stable 18:10 Discharge instructions given to patient, Instructed on discharge instructions, follow up and referral plans. medication usage, Demonstrated understanding of instructions, follow-up care, medications, Prescriptions given X 2, 18:11 Patient left the ED. bp Signatures: Dispatcher [employer] EDID Aracely Wilhelm MD MD cp3 Caron Ramires, RN RN Ney Winston, RN RN bp Rosa Isela Smith, PAS PAS ts1
[2023-09-03 20:39] VITALS: BP 136/86; TEMP 98.4; O2SAT 100
== END 2023-09-03 18:11 | disposition home or self-care (01) ==
LOC: ER 16:20
PROC: 0RSWXZZ Reposition Right Finger Phalangeal Joint, External Approach (ICD-10-PCS; principal; 2023-09-03)
DX: S63.276A Dislocation of unspecified interphalangeal joint of right little finger, initial encounter (principal)
CPT/HCPCS: 73130; 99284; 26770; J2001